=== PATIENT | female | born 1960 | race Caucasian/White ===

== ENCOUNTER 2016-05-02 05:53 | Emergency (ER) | payer BC ==
[2016-05-02] MEDS ORDERED: Sodium Chloride 0.9% 1,000 ML IV ONE (06:19)
[2016-05-02] MEDS ORDERED: Ondansetron 4 MG/2 ML SDV IVPUSH ONE (06:19)
[2016-05-02] MEDS ORDERED: Ketorolac 30 MG/ML SDV IVPUSH ONE (06:20)
--- NOTE | 2016-05-02 07:16 | EDM.PDOC ---
ED HPI GENERAL MEDICAL PROBLEM - General Chief Complaint: Gastrointestinal Problem Stated Complaint: PAIN ON RIGHT SIDE Time Seen by Provider: 05/02/16 06:57 - History of Present Illness INITIAL COMMENTS - FREE TEXT/NARRATIVE: HISTORY AND PHYSICAL: History of present illness: The patient is a 55-year-old female who presents with complaints of right lower abdominal pain nausea vomiting and diarrhea this been going on since about 12: 30 AM. The patient states she has a long-standing history of right lower abdominal pain and was told that she has an issue with her ovary and has been seen by Dr. Riddle and Dr. Loco at our institution as well as by [facility] this past . The patient has also been seen and evaluated by a surgeon, Dr. Myers, and L[place] and she feels that her right ovary needs to be removed but she states that "no one will take it out". She presents with similar pain that she has had before and says there is nothing different about it she has had nausea vomiting and diarrhea with that. She's had no fevers no chills no urinary complaints. The patient underwent labs here in the ED and has refused CAT scan or ultrasound. She had a CT scan performed here on July 31 at 2016 which showed a right adnexal mass and recommended ultrasound which she has not done and it also demonstrated the left hepatic lobe mass which she states she is aware of and does not want it addressed today.. Review of systems: As per history of present illness and below otherwise all systems reviewed and negative. Past medical history: As per history of present illness and as reviewed below otherwise noncontributory. Surgical history: As per history of present illness and as reviewed below otherwise noncontributory. Social history: No reported history of drug or alcohol abuse. Family history: As per history of present illness and as reviewed below otherwise noncontributory. Physical exam: General: Well-developed overweight female who is nontoxic and speaking clearly and easily. She moves easily in the bed without distress HEENT: Atraumatic, normocephalic, pupils reactive, negative for conjunctival pallor or scleral icterus, mucous membranes moist, throat clear, neck supple, nontender, trachea midline. Lungs: Clear to auscultation, breath sounds equal bilaterally, chest nontender. Heart: S1S2, regular, negative for clicks, rubs, or JVD. Abdomen: Soft, nondistended, nontender. On deep palpation of the right lower abdomen I am unable to elicit much pain and there is no rebound or guarding. She has hyperactive bowel sounds Negative for masses or hepatosplenomegaly. Negative for costovertebral tenderness. Pelvis: Stable nontender. Genitourinary: Deferred. Rectal: Deferred. Extremities: Atraumatic, negative for cords or calf pain. Neurovascular unremarkable. Neuro: Awake, alert, oriented. Cranial nerves II through XII unremarkable. Cerebellum unremarkable. Motor and sensory unremarkable throughout. Exam nonfocal. Diagnostics: CBC CMP UA CT scan of the abdomen and pelvis was ordered and the patient is refusing to perform that test Therapeutics: IV fluids Toradol Zofran Since the patient has been in the ED she has not had any vomiting or diarrhea and I have spoken to her at length that in order to make a better diagnosis I would want to do some imaging and she understands. She is currently refusing any imaging and would prefer to followup with the [facility] once they get her records from [facility] and determine the care plan from there. She understands the risks and is accepting them. I have spoken to her about using nonsteroidals and Zofran for home Impression: Acute on chronic right lower abdominal pain with vomiting and diarrhea improved Definitive disposition and diagnosis as appropriate pending reevaluation and review of above. Right Abdomen Pain Score (Numeric/FACES): 9 - Related Data Allergies Allergy/AdvReac Type Severity Reaction Status Date / Time shellfish derived Allergy Rash Verified 05/02/16 06:11 Home Meds: Home Meds Fluticasone/Salmeterol [Advair HFA 115-21] 1 puff INH BID 10/17/13 [History] Progesterone,Micronized [Progesterone] 50 mg PO DAILY 10/17/13 [History] Past Medical History - Past Health History Medical/Surgical History: Denies Medical/Surgical History Respiratory History: Reports: Asthma [employer] History: Reports: Other (see below) Other OB/BYN History: ovarian problems Endocrine/Metabolic History: Reports: Other (see below) Other Endocrine/Metabolic History: pre-diabetes - Infectious Disease History Infectious Disease History: Reports: Chicken pox, Other (see below) Other Infectious Disease History: cytomegalovirus Social & Family History - Family History Family Medical History: Noncontributory - Tobacco Use Smoking Status *Q: Never Smoker - Alcohol Use Days Per Week of Alcohol Use: 0 - Recreational Drug Use Recreational Drug Use: No ED ROS GENERAL - Review of Systems Review Of Systems: ROS reveals no pertinent complaints other than HPI. ED EXAM, GENERAL - Physical Exam Exam: See Below (See dictation) Course - Vital Signs Last Recorded V/S: Last Vital Signs Temp 37.2 C 05/02/16 06:06 Pulse 118 H 05/02/16 06:06 Resp 18 05/02/16 06:06 BP 146/85 H 05/02/16 06:06 Pulse Ox 93 L 05/02/16 06:06 - Orders/Labs/Meds Orders: Active Orders 24 hr Category Date Time Status Abdomen Pelvis wo Cont [CT] Stat Exams 05/02/16 06:20 Ordered UA W/MICROSCOPIC [URIN] Stat Lab 05/02/16 06:19 Uncollected Labs: Laboratory Tests 05/02/16 05/02/16 Range/Units 06:25 06:45 WBC 10.82 (4.0-11.0) K/uL RBC 5.13 (4.30-5.90) M/uL Hgb 14.9 (12.0-16.0) g/dL Hct 45.3 (36.0-46.0) % MCV 88.3 (80.0-98.0) fL MCH 29.0 (27.0-32.0) pg MCHC 32.9 (31.0-37.0) g/dL RDW Std Deviation 46.6 (28.0-62.0) fl RDW Coeff of Ana 14 (11.0-15.0) % Plt Count 280 (150-400) K/uL MPV 9.20 (7.40-12.00) fL Neut % (Auto) 90.3 H (48.0-80.0) % Lymph % (Auto) 3.8 L (16.0-40.0) % Love % (Auto) 5.3 (0.0-15.0) % Eos % (Auto) 0.5 (0.0-7.0) % Baso % (Auto) 0.1 (0.0-1.5) % Neut # (Auto) 9.8 H (1.4-5.7) K/uL Lymph # (Auto) 0.4 L (0.6-2.4) K/uL Love # (Auto) 0.6 (0.0-0.8) K/uL Eos # (Auto) 0.1 (0.0-0.7) K/uL Baso # (Auto) 0.0 (0.0-0.1) K/uL Nucleated RBC % 0.0 /100WBC Nucleated RBCs # 0 K/uL Sodium 138 (136-146) mmol/L Potassium 4.4 (3.5-5.1) mmol/L Chloride 107 (98-110) mmol/L Carbon Dioxide 22 (21-31) mmol/L BUN 18 (6.0-23.0) mg/dL Creatinine 0.8 (0.6-1.5) mg/dL Est Cr Clr Drug Dosing 86.93 mL/min Estimated GFR (MDRD) > 60.0 ml/min Glucose 112 H (60-110) mg/dL Calcium 8.1 L (8.8-10.8) mg/dL Total Bilirubin 0.6 (0.1-1.5) mg/dL AST 19 (5-40) IU/L ALT 31 (8-54) IU/L Alkaline Phosphatase 63 (40-150) Total Protein 7.0 (6.0-8.0) g/dL Albumin 3.8 (3.5-5.0) g/dL Globulin 3.2 (2.0-3.5) g/dL Albumin/Globulin Ratio 1.2 L (1.3-2.8) Meds: Medications Discontinued Medications Generic Name Dose Route Start Last Admin Trade Name Freq PRN Reason Stop Dose Admin Sodium Chloride 1,000 mls @ 999 mls/hr 05/02/16 06:19 05/02/16 06:28 Normal Saline IV 05/02/16 07:19 999 mls/hr .Bolus ONE Administration Ketorolac Tromethamine 30 mg 05/02/16 06:20 05/02/16 06:28 Toradol IVPUSH 05/02/16 06:21 30 mg ONETIME ONE Administration Ondansetron HCl 4 mg 05/02/16 06:19 05/02/16 06:28 Zofran IVPUSH 05/02/16 06:20 4 mg ONETIME ONE Administration Departure - Departure Time of Disposition: 07:33 Disposition: Home, Self-Care 01 Condition: good Clinical Impression: Chronic abdominal pain, Vomiting, Diarrhea Abdominal pain Qualifiers: Abdominal location: right lower quadrant Qualified Code(s): R10.31 - Right lower quadrant pain Forms: ED Department Discharge Additional Instructions: The following information is given to patients seen in the emergency department who are being discharged to home. This information is to outline your options for follow-up care. We provide all patients seen in our emergency department with a follow-up referral. The need for follow-up, as well as the timing and circumstances, are variable depending upon the specifics of your emergency department visit. If you don't have a primary care physician on staff, we will provide you with a referral. We always advise you to contact your personal physician following an emergency department visit to inform them of the circumstance of the visit and for follow-up with them and/or the need for any referrals to a consulting specialist. The emergency department will also refer you to a specialist when appropriate. This referral assures that you have the opportunity for followup care with a specialist. All of these measure are taken in an effort to provide you with optimal care, which includes your followup. Under all circumstances we always encourage you to contact your private physician who remains a resource for coordinating your care. When calling for followup care, please make the office aware that this follow-up is from your recent emergency room visit. If for any reason you are refused follow-up, please contact the [facility] emergency department at and ask to speak to the emergency department charge nurse. [facility] Primary care-Women's Health [address] [place] [id number] [facility] Primary care- Internal Medicine and Family [address] [address] Please take the Ultram and ibuprofen as well as the Zofran as needed [facility] Please call and followup with your family practice provider or with Dr. Riddle as we discussed and return here as needed and as discussed.
[2016-05-02 07:26] LABS: CHLORIDE,CL 107 mmol/L (98-110); SODIUM,NA 138 mmol/L (136-146)
[2016-05-02 07:48] VITALS: BP 140/70
== END 2016-05-02 07:46 | disposition home or self-care (01) ==
LOC: MW.ED 05:53
DX: R10.31 Right lower quadrant pain (principal); G89.29 Other chronic pain; R11.2 Nausea with vomiting, unspecified; R19.7 Diarrhea, unspecified; J45.909 Unspecified asthma, uncomplicated; Z91.013 Allergy to seafood
CPT/HCPCS: 80053; 85025; 96361; 96374; 96375; 99284; J1885; J2405; J7040

== ENCOUNTER 2016-05-27 06:19 | Day surgery (SDC) | payer BC ==
[2016-05-26 16:57] LABS: CHLORIDE,CL 105 mmol/L (98-110); SODIUM,NA 140 mmol/L (136-146)
[~2016-05-27 06:19] MED LIST: Lactated Ringers 1,000 ML IV SCH; Sodium Chloride 0.9% 10 ML Syringe FLUSH PRN; Sodium Chloride 0.9% 2.5 ML Syringe FLUSH PRN; ceFAZolin 2 GM in Premix Bag 1 BAG IV ONE
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
[2016-05-27] MEDS ORDERED: fentaNYL 250 MCG/5 ML SDV ONE (07:20)
[2016-05-27] MEDS ORDERED: Ondansetron 4 MG/2 ML SDV ONE (07:20)
[2016-05-27] MEDS ORDERED: Midazolam 1 MG/ML 2 ML SDV ONE (07:20)
[2016-05-27] MEDS ORDERED: Propofol 200 MG/20 ML SDV ONE (07:20)
[2016-05-27] MEDS ORDERED: Lidocaine 2% 5 ML SDV ONE (07:20)
[2016-05-27] MEDS ORDERED: Rocuronium 10 MG/ML 10 ML Syringe ONE (07:20)
[2016-05-27] MEDS ORDERED: Dexamethasone 4 MG/ML 5 ML MDV ONE (07:20)
[2016-05-27] MEDS ORDERED: Fluorescein 5 ML Vial ONE (07:32)
[2016-05-27] MEDS ORDERED: HYDROmorphone 2 MG/ML Syringe ONE (08:11)
[2016-05-27] MEDS ORDERED: fentaNYL 100 MCG/2 ML SDV IVPUSH PRN (08:35)
[2016-05-27] MEDS ORDERED: Belladonna Alkaloids/Opium 16.2-30 MG Supp RECTAL PRN (08:36)
[2016-05-27] MEDS ORDERED: Promethazine 12.5 MG Supp RECTAL ONE (08:36)
[2016-05-27] MEDS ORDERED: Albuterol/Ipratropium 3.0-0.5 MG/3 ML Neb Soln NEB PRN (08:39)
[2016-05-27] MEDS ORDERED: Neostigmine Methylsulfate 1 MG/ML 5 ML Syringe ONE (09:15)
[2016-05-27] MEDS ORDERED: Octyl 2-Cyanoacrylate 1 Tube ONE (09:18)
[2016-05-27] MEDS ORDERED: Promethazine 25 MG/ML SDV IM PRN (09:19)
[2016-05-27] MEDS ORDERED: Morphine 4 MG/ML Syringe IVPUSH PRN (09:19)
[2016-05-27] MEDS ORDERED: Ondansetron 4 MG/2 ML SDV IVPUSH PRN (09:19)
[2016-05-27] MEDS ORDERED: Ketorolac 30 MG/ML SDV IVPUSH PRN (09:19)
[2016-05-27] MEDS ORDERED: Ketorolac 30 MG/ML SDV IVPUSH ONE (09:19)
--- NOTE | 2016-05-27 09:23 | PCM.OPNOTE ---
- General Post-Op/Procedure Note Date of Surgery/Procedure: 05/27/16 Operative Procedure(s): TLH BSI Cysto Post-Op Diagnosis: Same Anesthesia Technique: General ET tube Primary Surgeon: Vladimir Riddle Document Control Assistant: Hortensia Huitron EBL in mLs: 150 Complications: None Condition: Good
--- NOTE | 2016-05-27 10:13 | PCM.POSTAN ---
POST ANESTHESIA ASSESSMENT - MENTAL STATUS Mental Status: alert, oriented - RESPIRATORY Respiratory Status: respiratory rate WNL, airway patent, O2 saturation stable - CARDIOVASCULAR CV Status: pulse rate WNL, blood pressure stable - GASTROINTESTINAL GI Status: no symptoms - PAIN Pain Score: 0 - POST OP HYDRATION Hydration Status: adequate & stable
--- NOTE | 2016-05-27 15:06 | OR ---
SURGEON: Vladimir Riddle MD DATE OF PROCEDURE: POSTOPERATIVE DIAGNOSES: 1. Pelvic pain. 2. Right ovarian cyst. POSTOPERATIVE DIAGNOSES: 1. Pelvic pain. 2. Right ovarian cyst. OPERATION PERFORMED: Multiple puncture diagnostic laparoscopy, total laparoscopic hysterectomy, laparoscopic bilateral salpingo-oophorectomy, and cystoscopy. DIRECTOR PHARMACEUTICAL: MARYANN Mallory. ANESTHESIA: General endotracheal intubation by Aurelia Ramos and Dr. Flores. ESTIMATED BLOOD LOSS: 150 mL. COMPLICATIONS: None. FINDINGS: Uterus is about 10 weeks. The right ovary is large cystic, is about 7 to 8 cm. INDICATION: [place] refer to the admit note. PROCEDURE IN DETAIL: The patient was brought to the OR, properly identified, and after adequate level of general anesthesia, the patient was placed in lithotomy, prepped and draped in sterile fashion, and De Santiago catheter was inserted in the bladder, and VCare uterine manipulator was placed in the uterus for manipulation. Then, the operation shifted abdominally. Stab wound was done beneath the umbilicus. The Veress needle was placed in the peritoneal cavity and that cavity insufflated with 6 L of carbon dioxide. Then skin incision was enlarged to accommodate 5-mm trocar and scope through it utilizing the Visiport technique to enter. Once we entered, inspection of the operative field was done, then 10-12 trocar placed in the left iliac fossa and one 5 mm trocar in the right iliac fossa, one suprapubically. The operation was started by placing the patient in steep Trendelenburg and retracting the intestine away from the operative field. The superior pedicle was coagulated, transected using the EnSeal Harmonic scalpel on both sides. The tubes and ovaries were included with the specimen. The round ligament was done in the same way and then the anterior leaf of the broad ligament was dissected downward pushing the bladder completely away from the operative field until I can feel the ring through the vagina. Then skeletonization of the uterine vessel was done and these vessel coagulated, transected using the [id number] Harmonic scalpel. The vagina was entered around the tip of the manipulator in a circular manner detaching the cervix from its attachment to the vagina. The cervix, uterus, tubes, and ovary were removed vaginally and pneumoperitoneum re-established by placing vaginal pack. It was noticed at this time, there was an area of bleeding and oozing from the right uterine vessel and that was individually picked and Endoloop was applied without any problem, and the bleeding stopped, and then thorough irrigation, inspection of the all pedicle. There was no oozing, no bleeding. We proceeded to close the vaginal cuff laparoscopically using 2-0 PDS interrupted sutures. While we were doing that, we asked the anesthesiologist to give the patient fluorescein and once we closed the vagina the abdomen was deflated and the patient flattened on the table, and the De Santiago catheter was removed. Cystoscopy was performed. The bladder was intact. Both ureteric orifices were seen with the dye coming from both of them. Thus, the patency of both ureters verified and confirmed, then the cystoscope was removed, and the multiple laparoscopic incisions were closed in layers. Instrument and sponge count were correct. The patient tolerated the procedure well, went to recovery room in stable general condition. SCOOBY / SLOAN /[id number]
[2016-05-27] MEDS: Acetaminophen/oxyCODONE 325-5 MG Tab PO PRN ×2 (17:50→22:00)
[2016-05-27] MEDS: metFORMIN 500 MG Tab PO SCH (21:38)
[2016-05-28] MEDS: Acetaminophen/oxyCODONE 325-5 MG Tab PO PRN ×2 (03:04→10:03)
[2016-05-28 05:11] LABS: CHLORIDE,CL 107 mmol/L (98-110); SODIUM,NA 139 mmol/L (136-146)
--- NOTE | 2016-05-28 07:50 | PCM48HPAN ---
Post Anesthesia Note - EVALUATION WITHIN 48HRS OF ANESTHETIC Vital Signs in Normal Range: Yes Patient Participated in Evaluation: Yes Respiratory Function Stable: Yes Airway Patent: Yes Cardiovascular Function Stable: Yes Hydration Status Stable: Yes Pain Control Satisfactory: Yes Nausea and Vomiting Control Satisfactory: Yes Mental Status Recovered: Yes
[2016-05-28 07:59] VITALS: BP 133/69
--- NOTE | 2016-05-28 08:51 | PCM.SURGPN ---
- General Info Date of Service: 05/28/16 POD#: 1 Functional Status: Reports: pain controlled - Review of Systems General: Reports: No Symptoms HEENT: Reports: no symptoms Pulmonary: Reports: no symptoms Cardiovascular: Reports: No Symptoms Gastrointestinal: Reports: No symptoms Genitourinary: Reports: no symptoms Musculoskeletal: Reports: no symptoms Skin: Reports: no symptoms Neurological: Reports: No Symptoms Psychiatric: Reports: no symptoms - Patient Data Vitals - most recent: Last Vital Signs Temp 37.0 C 05/28/16 07:59 Pulse 85 05/28/16 07:59 Resp 18 05/28/16 07:59 BP 133/69 05/28/16 07:59 Pulse Ox 92 L 05/28/16 07:59 Weight - most recent: 119.295 kg I&O - last 24 hours: Intake & Output 05/27/16 05/28/16 05/28/16 22:59 06:59 14:59 Intake Total 1156 600 Output Total 650 1950 Balance 506 -1350 Lab Results last 24 hrs: Laboratory Results - last 24 hr 05/28/16 05/28/16 Range/Units 04:34 04:34 WBC 16.82 H (4.0-11.0) K/uL RBC 4.07 L (4.30-5.90) M/uL Hgb 11.6 L (12.0-16.0) g/dL Hct 36.6 (36.0-46.0) % MCV 89.9 (80.0-98.0) fL MCH 28.5 (27.0-32.0) pg MCHC 31.7 (31.0-37.0) g/dL RDW Std Deviation 47.2 (28.0-62.0) fl RDW Coeff of Ana 14 (11.0-15.0) % Plt Count 314 (150-400) K/uL MPV 8.80 (7.40-12.00) fL Neut % (Auto) 82.6 H (48.0-80.0) % Lymph % (Auto) 10.1 L (16.0-40.0) % [place] % (Auto) 7.1 (0.0-15.0) % Eos % (Auto) 0.1 (0.0-7.0) % Baso % (Auto) 0.1 (0.0-1.5) % Neut # (Auto) 13.9 H (1.4-5.7) K/uL Lymph # (Auto) 1.7 (0.6-2.4) K/uL [place] # (Auto) 1.2 H (0.0-0.8) K/uL Eos # (Auto) 0.0 (0.0-0.7) K/uL Baso # (Auto) 0.0 (0.0-0.1) K/uL Nucleated RBC % 0.0 /100WBC Nucleated RBCs # 0 K/uL Sodium 139 (136-146) mmol/L Potassium 4.5 (3.5-5.1) mmol/L Chloride 107 (98-110) mmol/L Carbon Dioxide 22 (21-31) mmol/L BUN 14 (6.0-23.0) mg/dL Creatinine 0.8 (0.6-1.5) mg/dL Est Cr Clr Drug Dosing 75.26 mL/min Estimated GFR (MDRD) > 60.0 ml/min Glucose 122 H (60-110) mg/dL Calcium 8.8 (8.8-10.8) mg/dL Med Orders - Current: Current Medications Albuterol/Ipratropium (Duoneb 3.0-0.5 Mg/3 Ml) 3 ml NEB ONETIME PRN PRN Reason: Shortness of Breath Belladonna Alkaloids/Opium (B & O Supprettes No. 15a) 1 supp RECTAL ONETIME PRN PRN Reason: Spasms Fentanyl (Sublimaze) 50 mcg IVPUSH SEECOMMENT PRN PRN Reason: Pain (moderate 4-6) Lactated Ringer's (Ringers, Lactated) 1,000 mls @ 500 mls/hr IV .BOLUS [facility] Last Admin: 05/27/16 06:39 Dose: 500 mls/hr Ketorolac Tromethamine (Toradol) 30 mg IVPUSH Q6H PRN PRN Reason: Pain (severe 7-10) Stop: 06/01/16 09:19 Metformin HCl (Glucophage) 500 mg PO BID [facility] Last Admin: 05/27/16 21:38 Dose: Not Given Montelukast Sodium (Singulair) 10 mg PO DAILY [facility] Morphine Sulfate (Morphine) 4 mg IVPUSH Q2H PRN PRN Reason: Pain (severe 7-10) Ondansetron HCl (Zofran) 4 mg IVPUSH Q6H PRN PRN Reason: Nausea/Vomiting Oxycodone/Acetaminophen (Percocet 325-5 Mg) 2 tab PO Q4H PRN PRN Reason: Pain (moderate 4-6) Last Admin: 05/28/16 03:04 Dose: 2 tab Promethazine HCl (Phenergan) 25 mg IM Q6H PRN PRN Reason: Nausea/Vomiting Last Admin: 05/27/16 10:56 Dose: 25 mg Fluticasone/Salmeterol (Advair Diskus 250-50) 0 puff INH BID [facility] Sodium Chloride (Saline Flush) 10 ml FLUSH ASDIRECTED PRN PRN Reason: Keep Vein Open Sodium Chloride (Saline Flush) 2.5 ml FLUSH ASDIRECTED PRN PRN Reason: Keep Vein Open Discontinued Medications Dexamethasone (Dexamethasone) Confirm Administered Dose 20 mg .ROUTE .STK-MED ONE Stop: 05/27/16 07:21 Fentanyl (Sublimaze) Confirm Administered Dose 250 mcg .ROUTE .STK-MED ONE Stop: 05/27/16 07:21 Fluorescein Sodium (Ak-Fluor) Confirm Administered Dose 5 ml .ROUTE .STK-MED ONE Stop: 05/27/16 07:33 Glycopyrrolate () Confirm Administered Dose 1 mg .ROUTE .STK-MED ONE Stop: 05/27/16 09:16 Hydromorphone HCl (Dilaudid) Confirm Administered Dose 2 mg .ROUTE .STK-MED ONE Stop: 05/27/16 08:12 Cefazolin Sodium/Dextrose 2 gm (/ Premix) 50 mls @ 100 mls/hr IV ONETIME ONE Stop: 05/26/16 11:33 Last Admin: 05/27/16 15:08 Dose: Not Given Ketorolac Tromethamine (Toradol) 30 mg IVPUSH ONETIME ONE Stop: 05/27/16 09:20 Last Admin: 05/27/16 15:08 Dose: Not Given Lidocaine (Xylocaine-Mpf 2%) Confirm Administered Dose 5 ml .ROUTE .STK-MED ONE Stop: 05/27/16 07:21 Midazolam HCl (Versed 1 Mg/Ml) Confirm Administered Dose 2 mg .ROUTE .STK-MED ONE Stop: 05/27/16 07:21 Neostigmine Methylsulfate (Neostigmine) Confirm Administered Dose 5 mg .ROUTE .STK-MED ONE Stop: 05/27/16 09:16 Octyl Cyanoacrylate (Dermabond Advance) Confirm Administered Dose 1 applic .ROUTE .STK-MED ONE Stop: 05/27/16 09:19 Ondansetron HCl (Zofran) Confirm Administered Dose 4 mg .ROUTE .STK-MED ONE Stop: 05/27/16 07:21 Promethazine HCl (Phenadoz) 12.5 mg RECTAL ONETIME ONE Stop: 05/27/16 08:37 Last Admin: 05/27/16 15:08 Dose: Not Given Propofol (Diprivan 20 Ml) Confirm Administered Dose 200 mg .ROUTE .STK-MED ONE Stop: 05/27/16 07:21 Rocuronium Declo (Zemuron) Confirm Administered Dose 100 mg .ROUTE .STK-MED ONE Stop: 05/27/16 07:21 - Exam Wound/Incisions: healing well General: alert, oriented HEENT: Pupils equal Neck: supple Lungs: Clear to auscultation, Normal respiratory effort Cardiovascular: Regular Rate, Regular Rhythm Abdomen: bowel sounds present, soft, no tenderness, no distension Extremities: no edema Skin: warm, dry, intact Neurological: no new focal deficit Psy/Mental Status: alert, normal affect, normal mood - Problem List Review Problem List Initiated/Reviewed/Updated: Yes - My Orders Last 24 Hours: Active Orders 24 hr Category Date Time Status Patient Status [ADT] Routine ADT 05/27/16 09:19 Active Notify Provider Vital Signs [RC] ASDIRECTED Care 05/27/16 09:19 Active RT Aerosol Therapy [RC] ASDIRECTED Care 05/27/16 08:41 Active RT Incentive Spirometry [RC] Q2HWA Care 05/27/16 09:19 Active Up With Assistance [RC] PER UNIT ROUTINE Care 05/27/16 09:19 Active Up ad Autumn [RC] PER UNIT ROUTINE Care 05/27/16 09:19 Active Urinary Catheter Removal [RC] Per Unit Routine Care 05/27/16 09:19 Active Vital Signs [RC] Q4H Care 05/27/16 09:19 Active Regular Diet [DIET] Diet 05/27/16 Lunch Active Acetaminophen/oxyCODONE [Percocet 325-5 MG] Med 05/27/16 09:19 Active 2 tab PO Q4H PRN Albuterol/Ipratropium [DuoNeb 3.0-0.5 MG/3 ML] Med 05/27/16 08:39 Active 3 ml NEB ONETIME PRN Belladonna/Opium [B & O Supprettes No. 15A] Med 05/27/16 08:36 Active 1 supp RECTAL ONETIME PRN Fluticasone/Salmeterol [Advair Diskus 250-50] Med 05/28/16 09:00 Active 0 puff INH BID Ketorolac [Toradol] Med 05/27/16 09:19 Active 30 mg IVPUSH Q6H PRN Montelukast [Singulair] Med 05/28/16 09:00 Active 10 mg PO DAILY Morphine Med 05/27/16 09:19 Active 4 mg IVPUSH Q2H PRN Ondansetron [Zofran] Med 05/27/16 09:19 Active 4 mg IVPUSH Q6H PRN Promethazine [Phenergan] Med 05/27/16 09:19 Active 25 mg IM Q6H PRN fentaNYL [Sublimaze] Med 05/27/16 08:35 Active 50 mcg IVPUSH SEECOMMENT PRN metFORMIN [Glucophage] Med 05/27/16 09:00 Active 500 mg PO BID Peripheral IV Discontinue [OM.PC] Routine Oth 05/27/16 09:19 Ordered Sequential Compression Device [OM.PC] Per Unit Routine Oth 05/27/16 09:19 Ordered Resuscitation Status Routine Resus Stat 05/27/16 09:19 Ordered Medication Orders Albuterol/Ipratropium (Duoneb 3.0-0.5 Mg/3 Ml) 3 ml NEB ONETIME PRN PRN Reason: Shortness of Breath Belladonna Alkaloids/Opium (B & O Supprettes No. 15a) 1 supp RECTAL ONETIME PRN PRN Reason: Spasms Fentanyl (Sublimaze) 50 mcg IVPUSH SEECOMMENT PRN PRN Reason: Pain (moderate 4-6) Lactated Ringer's (Ringers, Lactated) 1,000 mls @ 500 mls/hr IV .BOLUS [facility] Last Admin: 05/27/16 06:39 Dose: 500 mls/hr Ketorolac Tromethamine (Toradol) 30 mg IVPUSH Q6H PRN PRN Reason: Pain (severe 7-10) Stop: 06/01/16 09:19 Metformin HCl (Glucophage) 500 mg PO BID [facility] Last Admin: 05/27/16 21:38 Dose: Admin: 05/27/16 21:38 Dose: Montelukast Sodium (Singulair) 10 mg PO DAILY [facility] Morphine Sulfate (Morphine) 4 mg IVPUSH Q2H PRN PRN Reason: Pain (severe 7-10) Ondansetron HCl (Zofran) 4 mg IVPUSH Q6H PRN PRN Reason: Nausea/Vomiting Oxycodone/Acetaminophen (Percocet 325-5 Mg) 2 tab PO Q4H PRN PRN Reason: Pain (moderate 4-6) Last Admin: 05/28/16 03:04 Dose: 2 tab Admin: 05/27/16 22:00 Dose: 2 tab Admin: 05/27/16 17:50 Dose: 2 tab Promethazine HCl (Phenergan) 25 mg IM Q6H PRN PRN Reason: Nausea/Vomiting Last Admin: 05/27/16 10:56 Dose: 25 mg Fluticasone/Salmeterol (Advair Diskus 250-50) 0 puff INH BID [facility] Sodium Chloride (Saline Flush) 10 ml FLUSH ASDIRECTED PRN PRN Reason: Keep Vein Open Sodium Chloride (Saline Flush) 2.5 ml FLUSH ASDIRECTED PRN PRN Reason: Keep Vein Open - Assessment Assessment (Free Text/Narrative):: Status post total laparoscopic hysterectomy and laparoscopic bilateral salpingo- oophorectomy postoperative day #1 the incision is clean and dry and there is no vaginal bleeding minimum pain laparoscopic incision is fine. Patient on regular diet tolerated very passing gas and voiding without any problem - Plan Plan (Free Text/Narrative):: I am sending the patient home the post hysterectomy instruction is given to the patient prescription for Percocet 7.5/325 for postoperative pain is given to the patient the patient to return to clinic in one week for postoperative followup
--- NOTE | 2016-05-28 08:52 | PCM.DCSUM1 ---
Discharge Summary - Discharge Data Discharge Date: 05/28/16 Discharge Disposition: Home, Self-Care 01 Condition: Good - Patient Summary/Data Operative Procedure(s) Performed: TL[facility] BSI Cysto - Patient Instructions Diet: Usual Diet as Tolerated Activity: As Tolerated Driving: Do Not Drive Showering/Bathing: May Shower Wound/Incision Care: Keep Operative Site/Wound Site Clean and Dry Notify Provider of: Fever, Increased Pain, Swelling and Redness, Drainage, Nausea and/or Vomiting - Discharge Plan Prescriptions/Med Rec: oxyCODONE HCl/Acetaminophen [Percocet 7.5-325 mg Tablet] 1 each PO Q4HR PRN #30 tablet PRN Reason: Pain Home Medications: Home Meds Albuterol/Ipratropium [DuoNeb 3.0-0.5 MG/3 ML] 1 dose NEB ASDIRECTED PRN [History] Levomefolate/Algal Oil [[place]-Algal Oil 7.5 mg Cap] 1 tab PO DAILY 05/24/16 [ History] Montelukast Sodium 10 mg PO DAILY 05/24/16 [History] Sm Mucous Er 1 tab PO ASDIRECTED 05/24/16 [History] Sodium Chloride 0.9% 1 dose NEB ASDIRECTED PRN 05/24/16 [History] Thyroid,Pork [Nature-Throid] 130 mg PO DAILY 05/24/16 [History] metFORMIN HCl [Metformin HCl] 500 mg PO BID 05/24/16 [History] Fluticasone/Salmeterol [Advair 250-50 Diskus] 1 puff IH BID 05/27/16 [History] oxyCODONE HCl/Acetaminophen [Percocet 7.5-325 mg Tablet] 1 each PO Q4HR PRN #30 tablet 05/28/16 [Rx] Patient Handouts: Acetaminophen; Oxycodone tablets, Total Laparoscopic Hysterectomy, Care After Referrals: [facility] [Outside] Vladimir Riddle MD [Physician] - 06/04/16 9:00 am - General Info Date of Service: 05/28/16 Functional Status: Reports: pain controlled - Review of Systems General: Reports: No Symptoms HEENT: Reports: no symptoms Pulmonary: Reports: no symptoms Cardiovascular: Reports: No Symptoms Gastrointestinal: Reports: No symptoms Genitourinary: Reports: no symptoms Musculoskeletal: Reports: no symptoms Skin: Reports: no symptoms Neurological: Reports: No Symptoms Psychiatric: Reports: no symptoms - Patient Data Vitals - Most Recent: Last Vital Signs Temp 37.0 C 05/28/16 07:59 Pulse 85 05/28/16 07:59 Resp 18 05/28/16 07:59 BP 133/69 05/28/16 07:59 Pulse Ox 92 L 05/28/16 07:59 Weight - Most Recent: 119.295 kg I&O - Last 24 hours: Intake & Output 05/27/16 05/28/16 05/28/16 22:59 06:59 14:59 Intake Total 1156 600 Output Total 650 1950 Balance 506 -1350 Lab Results - Last 24 hrs: Laboratory Results - last 24 hr 05/28/16 05/28/16 Range/Units 04:34 04:34 WBC 16.82 H (4.0-11.0) K/uL RBC 4.07 L (4.30-5.90) M/uL Hgb 11.6 L (12.0-16.0) g/dL Hct 36.6 (36.0-46.0) % MCV 89.9 (80.0-98.0) fL MCH 28.5 (27.0-32.0) pg MCHC 31.7 (31.0-37.0) g/dL RDW Std Deviation 47.2 (28.0-62.0) fl RDW Coeff of Ana 14 (11.0-15.0) % Plt Count 314 (150-400) K/uL MPV 8.80 (7.40-12.00) fL Neut % (Auto) 82.6 H (48.0-80.0) % Lymph % (Auto) 10.1 L (16.0-40.0) % [place] % (Auto) 7.1 (0.0-15.0) % Eos % (Auto) 0.1 (0.0-7.0) % Baso % (Auto) 0.1 (0.0-1.5) % Neut # (Auto) 13.9 H (1.4-5.7) K/uL Lymph # (Auto) 1.7 (0.6-2.4) K/uL [place] # (Auto) 1.2 H (0.0-0.8) K/uL Eos # (Auto) 0.0 (0.0-0.7) K/uL Baso # (Auto) 0.0 (0.0-0.1) K/uL Nucleated RBC % 0.0 /100WBC Nucleated RBCs # 0 K/uL Sodium 139 (136-146) mmol/L Potassium 4.5 (3.5-5.1) mmol/L Chloride 107 (98-110) mmol/L Carbon Dioxide 22 (21-31) mmol/L BUN 14 (6.0-23.0) mg/dL Creatinine 0.8 (0.6-1.5) mg/dL Est Cr Clr Drug Dosing 75.26 mL/min Estimated GFR (MDRD) > 60.0 ml/min Glucose 122 H (60-110) mg/dL Calcium 8.8 (8.8-10.8) mg/dL Med Orders - Current: Current Medications Albuterol/Ipratropium (Duoneb 3.0-0.5 Mg/3 Ml) 3 ml NEB ONETIME PRN PRN Reason: Shortness of Breath Belladonna Alkaloids/Opium (B & O Supprettes No. 15a) 1 supp RECTAL ONETIME PRN PRN Reason: Spasms Fentanyl (Sublimaze) 50 mcg IVPUSH SEECOMMENT PRN PRN Reason: Pain (moderate 4-6) Lactated Ringer's (Ringers, Lactated) 1,000 mls @ 500 mls/hr IV .[facility]OL[facility] Last Admin: 05/27/16 06:39 Dose: 500 mls/hr Ketorolac Tromethamine (Toradol) 30 mg IVPUSH Q6H PRN PRN Reason: Pain (severe 7-10) Stop: 06/01/16 09:19 Metformin HCl (Glucophage) 500 mg PO BID [facility] Last Admin: 05/27/16 21:38 Dose: Not Given Montelukast Sodium (Singulair) 10 mg PO DAILY [facility] Morphine Sulfate (Morphine) 4 mg IVPUSH Q2H PRN PRN Reason: Pain (severe 7-10) Ondansetron HCl (Zofran) 4 mg IVPUSH Q6H PRN PRN Reason: Nausea/Vomiting Oxycodone/Acetaminophen (Percocet 325-5 Mg) 2 tab PO Q4H PRN PRN Reason: Pain (moderate 4-6) Last Admin: 05/28/16 03:04 Dose: 2 tab Promethazine HCl (Phenergan) 25 mg IM Q6H PRN PRN Reason: Nausea/Vomiting Last Admin: 05/27/16 10:56 Dose: 25 mg Fluticasone/Salmeterol (Advair Diskus 250-50) 0 puff INH BID [facility] Sodium Chloride (Saline Flush) 10 ml FLUSH ASDIRECTED PRN PRN Reason: Keep Vein Open Sodium Chloride (Saline Flush) 2.5 ml FLUSH ASDIRECTED PRN PRN Reason: Keep Vein Open Discontinued Medications Dexamethasone (Dexamethasone) Confirm Administered Dose 20 mg .ROUTE .STK-MED ONE Stop: 05/27/16 07:21 Fentanyl (Sublimaze) Confirm Administered Dose 250 mcg .ROUTE .STK-MED ONE Stop: 05/27/16 07:21 Fluorescein Sodium (Ak-Fluor) Confirm Administered Dose 5 ml .ROUTE .STK-MED ONE Stop: 05/27/16 07:33 Glycopyrrolate () Confirm Administered Dose 1 mg .ROUTE .STK-MED ONE Stop: 05/27/16 09:16 Hydromorphone HCl (Dilaudid) Confirm Administered Dose 2 mg .ROUTE .STK-MED ONE Stop: 05/27/16 08:12 Cefazolin Sodium/Dextrose 2 gm (/ Premix) 50 mls @ 100 mls/hr IV ONETIME ONE Stop: 05/26/16 11:33 Last Admin: 05/27/16 15:08 Dose: Not Given Ketorolac Tromethamine (Toradol) 30 mg IVPUSH ONETIME ONE Stop: 05/27/16 09:20 Last Admin: 05/27/16 15:08 Dose: Not Given Lidocaine (Xylocaine-Mpf 2%) Confirm Administered Dose 5 ml .ROUTE .STK-MED ONE Stop: 05/27/16 07:21 Midazolam HCl (Versed 1 Mg/Ml) Confirm Administered Dose 2 mg .ROUTE .STK-MED ONE Stop: 05/27/16 07:21 Neostigmine Methylsulfate (Neostigmine) Confirm Administered Dose 5 mg .ROUTE .STK-MED ONE Stop: 05/27/16 09:16 Octyl Cyanoacrylate (Dermabond Advance) Confirm Administered Dose 1 applic .ROUTE .STK-MED ONE Stop: 05/27/16 09:19 Ondansetron HCl (Zofran) Confirm Administered Dose 4 mg .ROUTE .STK-MED ONE Stop: 05/27/16 07:21 Promethazine HCl (Phenadoz) 12.5 mg RECTAL ONETIME ONE Stop: 05/27/16 08:37 Last Admin: 05/27/16 15:08 Dose: Not Given Propofol (Diprivan 20 Ml) Confirm Administered Dose 200 mg .ROUTE .STK-MED ONE Stop: 05/27/16 07:21 Rocuronium Riva (Zemuron) Confirm Administered Dose 100 mg .ROUTE .STK-MED ONE Stop: 05/27/16 07:21 - Exam General: Reports: alert, oriented HEENT: Reports: Pupils equal, Pupils reactive, EOMI, Mucous membr. moist/pink Neck: Reports: supple Lungs: Reports: Clear to auscultation, Normal respiratory effort Cardiovascular: Reports: Regular Rate, Regular Rhythm Abdomen: Reports: bowel sounds present, soft, no tenderness, no distension (Female) Exam: Normal external exam, Normal speculum exam, Normal bimanual exam Rectal (Female) Exam: Normal Exam, Normal rectal tone Back Exam: Reports: normal inspection, full range of motion Extremities: Reports: no edema, normal pulses Skin: Reports: warm, dry, intact Wound/Incisions: Reports: healing well Neurological: Reports: no new focal deficit Psy/Mental Status: Reports: alert, normal affect, normal mood *Q Meaningful Use (DIS) - VTE *Q VTE Criteria *Q: - Stroke *Q Stroke Criteria *Q: - AMI *Q AMI Criteria *Q:
[2016-05-28] MEDS: metFORMIN 500 MG Tab PO SCH (08:59)
[2016-05-28] MEDS ORDERED: Montelukast 10 MG Tab PO SCH (09:00)
[2016-05-28] MEDS ORDERED: Fluticasone/Salmeterol 250-50 MCG Inhalation Powder 14/Diskus INH SCH (09:00)
== END 2016-05-28 10:15 | disposition home or self-care (01) ==
LOC: MW.SDS 06:19 → MW.MS 09:19 → MW.SDS 05-28 10:15
PROVIDERS: ATTEND Obstetrics & Gynecology
DX: D25.1 Intramural leiomyoma of uterus (principal); N83.01 Follicular cyst of right ovary; Z98.51 Tubal ligation status; Z91.018 Allergy to other foods; Z91.013 Allergy to seafood; Z79.899 Other long term (current) drug therapy
CPT/HCPCS: 36415; 58552; 80048; 84703; 85025; 85027; 86850; 86900; 86901; 94640; A9270; J1100; J1170; J2250; J2405; J2550; J3010; J7120; 00944; 88307; J2704

== ENCOUNTER 2020-12-09 15:25 | Inpatient (IN) | payer BC ==
[2020-12-09] MEDS ORDERED: Sodium Chloride 0.9% 2.5 ML Syringe FLUSH PRN (15:38)
[2020-12-09] MEDS ORDERED: Albuterol 8 GM Inhaler INH ONE (15:38)
[2020-12-09] MEDS ORDERED: Sodium Chloride 0.9% 10 ML Syringe FLUSH PRN (15:38)
[2020-12-09] MEDS ORDERED: Dexamethasone 10 MG/ML SDV IVPUSH ONE (15:39)
--- NOTE | 2020-12-09 16:19 | CR ---
HISTORY: Shortness of breath. Cough. COVID-19 positive. COMPARISON: None available FINDINGS: A portable erect AP view of the chest was obtained at 1552 hours. There are moderate streaky and patchy infiltrates scattered throughout both lungs consistent with an atypical pneumonia such as COVID-19. There is relative sparing of the left upper lobe. The heart is top normal in size. The mediastinum is normal in appearance. The osseous structures are normal in appearance for the patient`s age. IMPRESSION: Moderate patchy and streaky bilateral pulmonary infiltrates consistent with an atypical pneumonia such as COVID-19. Dictated by Jose Johnson MD @ 12/09/2020 4:16:51 PM (Electronically Signed)
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
[2020-12-09 16:52] LABS: BLOOD UREA NITROGEN,BUN 12 mg/dL (7.0-18.0); CARBON DIOXIDE,CO2 25.8 mmol/L (21.0-32.0); CHLORIDE,CL 102 mmol/L (98-107); GLUCOSE RANDOM 130 mg/dL (74-106); POTASSIUM,K 4.7 mmol/L (3.5-5.1); SODIUM,NA 139 mmol/L (136-145)
[2020-12-09] MEDS ORDERED: REMDESIVIR 200 MG in Sodium Chloride 0.9% 250 ML IV ONE (17:42)
[2020-12-09] MEDS ORDERED: Albuterol/Ipratropium 4 GM Inhalation Spray INH PRN (18:50)
[2020-12-09] MEDS ORDERED: Enoxaparin 40 MG/0.4 ML Syringe SUBCUT SCH (19:00)
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
[2020-12-10] MEDS: guaiFENesin 100 MG/5 ML Soln 5 ML UD Cup PO PRN ×3 (04:35→22:43)
[2020-12-10 07:27] LABS: BLOOD UREA NITROGEN,BUN 10 mg/dL (7.0-18.0); CARBON DIOXIDE,CO2 24.1 mmol/L (21.0-32.0); CHLORIDE,CL 102 mmol/L (98-107); GLUCOSE RANDOM 146 mg/dL (74-106); POTASSIUM,K 4.5 mmol/L (3.5-5.1); SODIUM,NA 137 mmol/L (136-145)
[2020-12-10] MEDS: Enoxaparin 40 MG/0.4 ML Syringe SUBCUT SCH ×2 (08:52→20:24)
[2020-12-10] MEDS: Dexamethasone 4 MG Tab PO SCH (08:53)
[2020-12-10] MEDS: Pantoprazole 40 MG Tab.CR PO SCH (08:53)
[2020-12-10] MEDS ORDERED: Albuterol/Ipratropium 3.0-0.5 MG/3 ML Neb Soln NEB PRN ×2 (14:30→18:00)
--- NOTE | 2020-12-10 14:54 | PCM.PN ---
<Bradley Donahue - Last Filed: 12/10/20 14:48> - General Info Date of Service: 12/10/20 Subjective Update: The patient is a 60-year-old female, on day 2 of service, with a significant past medical history of asthma, GERD, DUB, polycystic ovaries, history of CMV, and anxiety, who was admitted due to acute respiratory failure secondary to COVID-19 pneumonia. The patient is currently saturating 92% on 1 L of oxygen. Upon interview with the patient today she admits that she has shortness of breath upon exertion around her room and that she has a cough productive of white sputum devoid of any blood or mucus. She also admits to feeling weaker than usual. She had combivent on board which was as needed but now has been scheduled to every 4 hours. She also has duo nebs on board which a re as needed. She has no other health concerns at this time. - Review of Systems General: Reports: Weakness, Fatigue. Denies: Fever HEENT: Denies: Headaches, Sore Throat Pulmonary: Reports: Shortness of Breath, Cough Cardiovascular: Reports: Dyspnea on Exertion. Denies: Chest Pain, Palpitations Gastrointestinal: Denies: Abdominal Pain Genitourinary: Denies: Dysuria - Patient Data Vitals - Most Recent: Last Vital Signs Temp 98.6 F 12/10/20 12:00 Pulse 84 12/10/20 12:00 Resp 18 12/10/20 12:00 BP 132/80 12/10/20 12:00 Pulse Ox 90 L 12/10/20 12:00 Weight - Most Recent: 122.47 kg I&O - Last 24 Hours: Intake & Output 12/09/20 12/10/20 12/10/20 22:59 06:59 14:59 Intake Total 800 Output Total 800 Balance 0 Lab Results Last 24 Hours: Laboratory Results - last 24 hr 12/09/20 12/09/20 12/09/20 Range/Units 16:15 16:15 16:15 WBC 6.23 (4.0-11.0) K/uL RBC 4.99 (4.30-5.90) M/uL Hgb 14.4 (12.0-16.0) g/dL Hct 43.5 (36.0-46.0) % MCV 87.2 (80.0-98.0) fL MCH 28.9 (27.0-32.0) pg MCHC 33.1 (31.0-37.0) g/dL RDW Std Deviation 45.8 (28.0-62.0) fl RDW Coeff of Ana 15 (11.0-15.0) % Plt Count 276 (150-400) K/uL MPV 9.90 (7.40-12.00) fL Neut % (Auto) 70.6 (48.0-80.0) % Lymph % (Auto) 21.2 (16.0-40.0) % Worth % (Auto) 7.7 (0.0-15.0) % Eos % (Auto) 0.0 (0.0-7.0) % Baso % (Auto) 0.5 (0.0-1.5) % Neut # (Auto) 4.4 (1.4-5.7) K/uL Lymph # (Auto) 1.3 (0.6-2.4) K/uL Worth # (Auto) 0.5 (0.0-0.8) K/uL Eos # (Auto) 0.0 (0.0-0.7) K/uL Baso # (Auto) 0.0 (0.0-0.1) K/uL Nucleated RBC % 0.0 /100WBC Nucleated RBCs # 0 K/uL Sodium 139 (136-145) mmol/L Potassium 4.7 (3.5-5.1) mmol/L Chloride 102 (98-107) mmol/L Carbon Dioxide 25.8 (21.0-32.0) mmol/L BUN 12 (7.0-18.0) mg/dL Creatinine 0.6 (0.6-1.0) mg/dL Est Cr Clr Drug Dosing 90.84 mL/min Estimated GFR (MDRD) > 60.0 ml/min Glucose 130 H (74-106) mg/dL Calcium 8.7 (8.5-10.1) mg/dL Total Bilirubin 0.5 (0.2-1.0) mg/dL Direct Bilirubin 0.10 (0.0-0.5) mg/dL AST 57 H (15-37) IU/L ALT 42 (14-63) IU/L Alkaline Phosphatase 62 (46-116) U/L Troponin I < 0.050 (0.000-0.056) ng/mL Total Protein 7.0 (6.4-8.2) g/dL Albumin 3.1 L (3.4-5.0) g/dL Globulin 3.9 (2.6-4.0) g/dL Albumin/Globulin Ratio 0.8 L (0.9-1.6) 12/10/20 12/10/20 Range/Units 06:29 06:29 WBC 4.79 (4.0-11.0) K/uL RBC 4.88 (4.30-5.90) M/uL Hgb 14.0 (12.0-16.0) g/dL Hct 42.3 (36.0-46.0) % MCV 86.7 (80.0-98.0) fL MCH 28.7 (27.0-32.0) pg MCHC 33.1 (31.0-37.0) g/dL RDW Std Deviation 45.3 (28.0-62.0) fl RDW Coeff of Ana 14 (11.0-15.0) % Plt Count 356 (150-400) K/uL MPV 9.00 (7.40-12.00) fL Neut % (Auto) 72.0 (48.0-80.0) % Lymph % (Auto) 20.3 (16.0-40.0) % Worth % (Auto) 7.5 (0.0-15.0) % Eos % (Auto) 0.0 (0.0-7.0) % Baso % (Auto) 0.2 (0.0-1.5) % Neut # (Auto) 3.5 (1.4-5.7) K/uL Lymph # (Auto) 1.0 (0.6-2.4) K/uL Worth # (Auto) 0.4 (0.0-0.8) K/uL Eos # (Auto) 0.0 (0.0-0.7) K/uL Baso # (Auto) 0.0 (0.0-0.1) K/uL Nucleated RBC % 0.0 /100WBC Nucleated RBCs # 0 K/uL Sodium 137 (136-145) mmol/L Potassium 4.5 (3.5-5.1) mmol/L Chloride 102 (98-107) mmol/L Carbon Dioxide 24.1 (21.0-32.0) mmol/L BUN 10 (7.0-18.0) mg/dL Creatinine 0.7 (0.6-1.0) mg/dL Est Cr Clr Drug Dosing 81.01 mL/min Estimated GFR (MDRD) > 60.0 ml/min Glucose 146 H (74-106) mg/dL Calcium 8.2 L (8.5-10.1) mg/dL Total Bilirubin 0.5 (0.2-1.0) mg/dL Direct Bilirubin (0.0-0.5) mg/dL AST 40 H (15-37) IU/L ALT 45 (14-63) IU/L Alkaline Phosphatase 64 (46-116) U/L Troponin I (0.000-0.056) ng/mL Total Protein 7.4 (6.4-8.2) g/dL Albumin 2.9 L (3.4-5.0) g/dL Globulin 4.5 H (2.6-4.0) g/dL Albumin/Globulin Ratio 0.6 L (0.9-1.6) Med Orders - Current: Current Medications Albuterol/Ipratropium (Albuterol/Ipratropium 4 Gm Inhalation [place]) 0 gm INH Q4H [facility] Albuterol/Ipratropium (Albuterol/Ipratropium 3.0-0.5 Mg/3 Ml Neb Soln) 3 ml NEB Q4HRRT PRN PRN Reason: Shortness of Breath Dexamethasone (Dexamethasone 4 Mg Tab) 6 mg PO DAILY [facility] Last Admin: 12/10/20 08:53 Dose: 6 mg Documented by: Enoxaparin Sodium (Enoxaparin 40 Mg/0.4 Ml Syringe) 40 mg SUBCUT Q12H [facility] Last Admin: 12/10/20 08:52 Dose: 40 mg Documented by: Guaifenesin (Guaifenesin 100 Mg/5 Ml Soln 5 Ml Ud Cup) 100 mg PO Q6H PRN PRN Reason: Cough Last Admin: 12/10/20 04:35 Dose: 100 mg Documented by: Remdesivir 100 mg/ Sodium (Chloride) 100 mls @ 100 mls/hr IV Q24H [facility] Stop: 12/13/20 16:29 Pantoprazole Sodium (Pantoprazole 40 Mg Tab.Cr) 40 mg PO DAILY [facility] Last Admin: 12/10/20 08:53 Dose: 40 mg Documented by: Sodium Chloride (Sodium Chloride 0.9% 10 Ml Syringe) 10 ml FLUSH ASDIRECTED PRN PRN Reason: Keep Vein Open Last Admin: 12/09/20 16:16 Dose: 10 ml Documented by: Sodium Chloride (Sodium Chloride 0.9% 2.5 Ml Syringe) 2.5 ml FLUSH ASDIRECTED PRN PRN Reason: Keep Vein Open Last Admin: 12/09/20 16:18 Dose: 2.5 ml Documented by: Discontinued Medications Albuterol (Albuterol 8 Gm Inhaler) 1 gm INH ONETIME ONE Stop: 12/09/20 15:39 Last Admin: 12/09/20 16:20 Dose: 2 puff Documented by: Albuterol/Ipratropium (Albuterol/Ipratropium 4 Gm Inhalation [place]) 1 gm INH Q4H PRN PRN Reason: Dyspnea Dexamethasone (Dexamethasone 10 Mg/Ml Sdv) 6 mg IVPUSH ONETIME ONE Stop: 12/09/20 15:40 Last Admin: 12/09/20 16:28 Dose: 6 mg Documented by: Enoxaparin Sodium (Enoxaparin 40 Mg/0.4 Ml Syringe) 40 mg SUBCUT Q24H [facility] Last Admin: 12/09/20 20:08 Dose: 40 mg Documented by: Remdesivir 200 mg/ Sodium (Chloride) 250 mls @ 250 mls/hr IV ONETIME ONE Stop: 12/09/20 17:43 Last Admin: 12/09/20 18:26 Dose: 250 mls/hr Documented by: - Exam General: Alert, Oriented, Cooperative HEENT: Mucous Membr. Moist/[place] Neck: No: Lymphadenopathy Lungs: Wheezing Cardiovascular: Tachycardia GI/Abdominal Exam: Normal Bowel Sounds, Soft, Non-Tender Extremities: No Pedal Edema - Patient Data Lab Results Last 24 hrs: Laboratory Results - last 24 hr 12/09/20 12/09/20 12/09/20 Range/Units 16:15 16:15 16:15 WBC 6.23 (4.0-11.0) K/uL RBC 4.99 (4.30-5.90) M/uL Hgb 14.4 (12.0-16.0) g/dL Hct 43.5 (36.0-46.0) % MCV 87.2 (80.0-98.0) fL MCH 28.9 (27.0-32.0) pg MCHC 33.1 (31.0-37.0) g/dL RDW Std Deviation 45.8 (28.0-62.0) fl RDW Coeff of Ana 15 (11.0-15.0) % Plt Count 276 (150-400) K/uL MPV 9.90 (7.40-12.00) fL Neut % (Auto) 70.6 (48.0-80.0) % Lymph % (Auto) 21.2 (16.0-40.0) % Worth % (Auto) 7.7 (0.0-15.0) % Eos % (Auto) 0.0 (0.0-7.0) % Baso % (Auto) 0.5 (0.0-1.5) % Neut # (Auto) 4.4 (1.4-5.7) K/uL Lymph # (Auto) 1.3 (0.6-2.4) K/uL Worth # (Auto) 0.5 (0.0-0.8) K/uL Eos # (Auto) 0.0 (0.0-0.7) K/uL Baso # (Auto) 0.0 (0.0-0.1) K/uL Nucleated RBC % 0.0 /100WBC Nucleated RBCs # 0 K/uL Sodium 139 (136-145) mmol/L Potassium 4.7 (3.5-5.1) mmol/L Chloride 102 (98-107) mmol/L Carbon Dioxide 25.8 (21.0-32.0) mmol/L BUN 12 (7.0-18.0) mg/dL Creatinine 0.6 (0.6-1.0) mg/dL Est Cr Clr Drug Dosing 90.84 mL/min Estimated GFR (MDRD) > 60.0 ml/min Glucose 130 H (74-106) mg/dL Calcium 8.7 (8.5-10.1) mg/dL Total Bilirubin 0.5 (0.2-1.0) mg/dL Direct Bilirubin 0.10 (0.0-0.5) mg/dL AST 57 H (15-37) IU/L ALT 42 (14-63) IU/L Alkaline Phosphatase 62 (46-116) U/L Troponin I < 0.050 (0.000-0.056) ng/mL Total Protein 7.0 (6.4-8.2) g/dL Albumin 3.1 L (3.4-5.0) g/dL Globulin 3.9 (2.6-4.0) g/dL Albumin/Globulin Ratio 0.8 L (0.9-1.6) 12/10/20 12/10/20 Range/Units 06:29 06:29 WBC 4.79 (4.0-11.0) K/uL RBC 4.88 (4.30-5.90) M/uL Hgb 14.0 (12.0-16.0) g/dL Hct 42.3 (36.0-46.0) % MCV 86.7 (80.0-98.0) fL MCH 28.7 (27.0-32.0) pg MCHC 33.1 (31.0-37.0) g/dL RDW Std Deviation 45.3 (28.0-62.0) fl RDW Coeff of Ana 14 (11.0-15.0) % Plt Count 356 (150-400) K/uL MPV 9.00 (7.40-12.00) fL Neut % (Auto) 72.0 (48.0-80.0) % Lymph % (Auto) 20.3 (16.0-40.0) % Worth % (Auto) 7.5 (0.0-15.0) % Eos % (Auto) 0.0 (0.0-7.0) % Baso % (Auto) 0.2 (0.0-1.5) % Neut # (Auto) 3.5 (1.4-5.7) K/uL Lymph # (Auto) 1.0 (0.6-2.4) K/uL Worth # (Auto) 0.4 (0.0-0.8) K/uL Eos # (Auto) 0.0 (0.0-0.7) K/uL Baso # (Auto) 0.0 (0.0-0.1) K/uL Nucleated RBC % 0.0 /100WBC Nucleated RBCs # 0 K/uL Sodium 137 (136-145) mmol/L Potassium 4.5 (3.5-5.1) mmol/L Chloride 102 (98-107) mmol/L Carbon Dioxide 24.1 (21.0-32.0) mmol/L BUN 10 (7.0-18.0) mg/dL Creatinine 0.7 (0.6-1.0) mg/dL Est Cr Clr Drug Dosing 81.01 mL/min Estimated GFR (MDRD) > 60.0 ml/min Glucose 146 H (74-106) mg/dL Calcium 8.2 L (8.5-10.1) mg/dL Total Bilirubin 0.5 (0.2-1.0) mg/dL Direct Bilirubin (0.0-0.5) mg/dL AST 40 H (15-37) IU/L ALT 45 (14-63) IU/L Alkaline Phosphatase 64 (46-116) U/L Troponin I (0.000-0.056) ng/mL Total Protein 7.4 (6.4-8.2) g/dL Albumin 2.9 L (3.4-5.0) g/dL Globulin 4.5 H (2.6-4.0) g/dL Albumin/Globulin Ratio 0.6 L (0.9-1.6) Result Diagrams: 12/10/20 06:29 12/10/20 06:29 Sepsis Event Note - Evaluation Sepsis Screening Result: No Definite Risk - Focused Exam Vital Signs: Vital Signs Temp Pulse Resp BP Pulse Ox 12/10/20 12:00 98.6 F 84 18 132/80 90 L 12/10/20 08:51 91 L 12/10/20 08:49 88 L 12/10/20 08:00 97.5 F 82 20 128/74 92 L 12/10/20 03:35 97.0 F 84 14 122/72 92 L - Problem List & Annotations (1) Asthma SNOMED Code(s): 715172955 Code(s): J45.909 - UNSPECIFIED ASTHMA, UNCOMPLICATED Status: Acute Current Visit: Yes (2) GERD (gastroesophageal reflux disease) SNOMED Code(s): 322022809 Code(s): K21.9 - GASTRO-ESOPHAGEAL REFLUX DISEASE WITHOUT ESOPHAGITIS Status: Acute Current Visit: Yes (3) COVID-19 SNOMED Code(s): 314702927 Code(s): U07.1 - COVID-19 Status: Acute Current Visit: Yes - Problem List Review Problem List Initiated/Reviewed/Updated: Yes - My Orders Last 24 Hours: My Active Orders 12/09/20 Dinner Regular Diet [DIET] 12/09/20 18:50 RT Post Treatment Assessment [RC] Click to Edit RT Pre-Treatment Assessment [RC] Click to Edit 12/09/20 18:51 guaiFENesin [Robitussin] 100 mg PO Q6H PRN 12/09/20 18:53 Code Status [Resuscitation Status] Routine 12/10/20 08:00 Enoxaparin [Lovenox] 40 mg SUBCUT Q12H 12/10/20 09:00 Pantoprazole [ProTONIX] 40 mg PO DAILY dexAMETHasone 6 mg PO DAILY 12/10/20 14:30 Albuterol/Ipratropium [Combivent Respimat] 0 gm INH Q4H Albuterol/Ipratropium [DuoNeb 3.0-0.5 MG/3 ML] 3 ml NEB Q4HRRT PRN 12/10/20 15:30 Remdesivir 100 mg Sodium Chloride 0.9% [Normal Saline AdvBag] 100 ml IV Q24H 12/11/20 05:11 CBC WITH AUTO DIFF [HEME] AM CMP [COMPREHENSIVE METABOLIC PN,CMP] [CHEM] AM 12/12/20 05:11 CBC WITH AUTO DIFF [HEME] AM CMP [COMPREHENSIVE METABOLIC PN,CMP] [CHEM] AM - Plan Plan:: 1. Acute respiratory failure secondary to COVID-19 pneumonia -Continue remdesivir 100 mg per IV route -Continue dexamethasone 6 mg per oral route -For shortness of breath the patient has Combivent as a scheduled medication, and duo nebs as needed -For cough the patient has Robitussin on board -We will continue to supply oxygen as needed -We will encourage incentive spirometry in the prone position -Daily CBC/CMP <Krissy Castaneda - Last Filed: 12/10/20 20:55> - General Info Subjective Update: I have seen and evaluated the patient and agree with the residents note unless specified in my note - Patient Data Vitals - Most Recent: Last Vital Signs Temp 36.4 C 12/10/20 20:20 Pulse 88 12/10/20 20:20 Resp 18 12/10/20 20:20 BP 135/79 12/10/20 20:20 Pulse Ox 90 L 12/10/20 20:20 I&O - Last 24 Hours: Intake & Output 12/10/20 12/10/20 12/10/20 06:59 14:59 22:59 Intake Total 800 1170 Output Total 800 1200 Balance 0 -30 Lab Results Last 24 Hours: Laboratory Results - last 24 hr 12/10/20 12/10/20 Range/Units 06:29 06:29 WBC 4.79 (4.0-11.0) K/uL RBC 4.88 (4.30-5.90) M/uL Hgb 14.0 (12.0-16.0) g/dL Hct 42.3 (36.0-46.0) % MCV 86.7 (80.0-98.0) fL MCH 28.7 (27.0-32.0) pg MCHC 33.1 (31.0-37.0) g/dL RDW Std Deviation 45.3 (28.0-62.0) fl RDW Coeff of Ana 14 (11.0-15.0) % Plt Count 356 (150-400) K/uL MPV 9.00 (7.40-12.00) fL Neut % (Auto) 72.0 (48.0-80.0) % Lymph % (Auto) 20.3 (16.0-40.0) % Worth % (Auto) 7.5 (0.0-15.0) % Eos % (Auto) 0.0 (0.0-7.0) % Baso % (Auto) 0.2 (0.0-1.5) % Neut # (Auto) 3.5 (1.4-5.7) K/uL Lymph # (Auto) 1.0 (0.6-2.4) K/uL Worth # (Auto) 0.4 (0.0-0.8) K/uL Eos # (Auto) 0.0 (0.0-0.7) K/uL Baso # (Auto) 0.0 (0.0-0.1) K/uL Nucleated RBC % 0.0 /100WBC Nucleated RBCs # 0 K/uL Sodium 137 (136-145) mmol/L Potassium 4.5 (3.5-5.1) mmol/L Chloride 102 (98-107) mmol/L Carbon Dioxide 24.1 (21.0-32.0) mmol/L BUN 10 (7.0-18.0) mg/dL Creatinine 0.7 (0.6-1.0) mg/dL Est Cr Clr Drug Dosing 81.01 mL/min Estimated GFR (MDRD) > 60.0 ml/min Glucose 146 H (74-106) mg/dL Calcium 8.2 L (8.5-10.1) mg/dL Total Bilirubin 0.5 (0.2-1.0) mg/dL AST 40 H (15-37) IU/L ALT 45 (14-63) IU/L Alkaline Phosphatase 64 (46-116) U/L Total Protein 7.4 (6.4-8.2) g/dL Albumin 2.9 L (3.4-5.0) g/dL Globulin 4.5 H (2.6-4.0) g/dL Albumin/Globulin Ratio 0.6 L (0.9-1.6) Med Orders - Current: Current Medications Albuterol/Ipratropium (Albuterol/Ipratropium 4 Gm Inhalation [place]) 0 gm INH Q4H [facility] Last Admin: 12/10/20 18:11 Dose: 1 puff Documented by: Albuterol/Ipratropium (Albuterol/Ipratropium 3.0-0.5 Mg/3 Ml Neb Soln) 3 ml NEB Q4HRRT PRN PRN Reason: Shortness of Breath Dexamethasone (Dexamethasone 4 Mg Tab) 6 mg PO DAILY [facility] Last Admin: 12/10/20 08:53 Dose: 6 mg Documented by: Enoxaparin Sodium (Enoxaparin 40 Mg/0.4 Ml Syringe) 40 mg SUBCUT Q12H [facility] Last Admin: 12/10/20 20:24 Dose: 40 mg Documented by: Guaifenesin (Guaifenesin 100 Mg/5 Ml Soln 5 Ml Ud Cup) 100 mg PO Q6H PRN PRN Reason: Cough Last Admin: 12/10/20 16:43 Dose: 100 mg Documented by: Remdesivir 100 mg/ Sodium (Chloride) 100 mls @ 100 mls/hr IV Q24H [facility] Stop: 12/13/20 16:29 Last Admin: 12/10/20 15:49 Dose: 100 mls/hr Documented by: Pantoprazole Sodium (Pantoprazole 40 Mg Tab.Cr) 40 mg PO DAILY [facility] Last Admin: 12/10/20 08:53 Dose: 40 mg Documented by: Fluticasone/Salmeterol (Fluticasone/Salmeterol 250-50 Mcg Inhalation Powder 14/Diskus) 0 puff INH BID [facility] Last Admin: 12/10/20 20:24 Dose: 1 puff Documented by: Sodium Chloride (Sodium Chloride 0.9% 10 Ml Syringe) 10 ml FLUSH ASDIRECTED PRN PRN Reason: Keep Vein Open Last Admin: 12/09/20 16:16 Dose: 10 ml Documented by: Sodium Chloride (Sodium Chloride 0.9% 2.5 Ml Syringe) 2.5 ml FLUSH ASDIRECTED PRN PRN Reason: Keep Vein Open Last Admin: 12/09/20 16:18 Dose: 2.5 ml Documented by: Discontinued Medications Albuterol (Albuterol 8 Gm Inhaler) 1 gm INH ONETIME ONE Stop: 12/09/20 15:39 Last Admin: 12/09/20 16:20 Dose: 2 puff Documented by: Albuterol/Ipratropium (Albuterol/Ipratropium 4 Gm Inhalation [place]) 1 gm INH Q4H PRN PRN Reason: Dyspnea Albuterol/Ipratropium (Albuterol/Ipratropium 3.0-0.5 Mg/3 Ml Neb Soln) 3 ml NEB Q4HRRT PRN PRN Reason: Shortness of Breath Dexamethasone (Dexamethasone 10 Mg/Ml Sdv) 6 mg IVPUSH ONETIME ONE Stop: 12/09/20 15:40 Last Admin: 12/09/20 16:28 Dose: 6 mg Documented by: Enoxaparin Sodium (Enoxaparin 40 Mg/0.4 Ml Syringe) 40 mg SUBCUT Q24H [facility] Last Admin: 12/09/20 20:08 Dose: 40 mg Documented by: Remdesivir 200 mg/ Sodium (Chloride) 250 mls @ 250 mls/hr IV ONETIME ONE Stop: 12/09/20 17:43 Last Admin: 12/09/20 18:26 Dose: 250 mls/hr Documented by: - Patient Data Lab Results Last 24 hrs: Laboratory Results - last 24 hr 12/10/20 12/10/20 Range/Units 06:29 06:29 WBC 4.79 (4.0-11.0) K/uL RBC 4.88 (4.30-5.90) M/uL Hgb 14.0 (12.0-16.0) g/dL Hct 42.3 (36.0-46.0) % MCV 86.7 (80.0-98.0) fL MCH 28.7 (27.0-32.0) pg MCHC 33.1 (31.0-37.0) g/dL RDW Std Deviation 45.3 (28.0-62.0) fl RDW Coeff of Ana 14 (11.0-15.0) % Plt Count 356 (150-400) K/uL MPV 9.00 (7.40-12.00) fL Neut % (Auto) 72.0 (48.0-80.0) % Lymph % (Auto) 20.3 (16.0-40.0) % Worth % (Auto) 7.5 (0.0-15.0) % Eos % (Auto) 0.0 (0.0-7.0) % Baso % (Auto) 0.2 (0.0-1.5) % Neut # (Auto) 3.5 (1.4-5.7) K/uL Lymph # (Auto) 1.0 (0.6-2.4) K/uL Worth # (Auto) 0.4 (0.0-0.8) K/uL Eos # (Auto) 0.0 (0.0-0.7) K/uL Baso # (Auto) 0.0 (0.0-0.1) K/uL Nucleated RBC % 0.0 /100WBC Nucleated RBCs # 0 K/uL Sodium 137 (136-145) mmol/L Potassium 4.5 (3.5-5.1) mmol/L Chloride 102 (98-107) mmol/L Carbon Dioxide 24.1 (21.0-32.0) mmol/L BUN 10 (7.0-18.0) mg/dL Creatinine 0.7 (0.6-1.0) mg/dL Est Cr Clr Drug Dosing 81.01 mL/min Estimated GFR (MDRD) > 60.0 ml/min Glucose 146 H (74-106) mg/dL Calcium 8.2 L (8.5-10.1) mg/dL Total Bilirubin 0.5 (0.2-1.0) mg/dL AST 40 H (15-37) IU/L ALT 45 (14-63) IU/L Alkaline Phosphatase 64 (46-116) U/L Total Protein 7.4 (6.4-8.2) g/dL Albumin 2.9 L (3.4-5.0) g/dL Globulin 4.5 H (2.6-4.0) g/dL Albumin/Globulin Ratio 0.6 L (0.9-1.6) Result Diagrams: 12/10/20 06:29 12/10/20 06:29 Sepsis Event Note - Focused Exam Vital Signs: Vital Signs Temp Pulse Resp BP Pulse Ox 12/10/20 20:20 36.4 C 88 18 135/79 90 L 12/10/20 15:57 36.8 C 81 18 133/89 91 L 12/10/20 12:00 37.0 C 84 18 132/80 90 L - My Orders Last 24 Hours: My Active Orders 12/09/20 21:14 Telemetry Monitoring [Cardiac Monitoring] [RC] Q8H 12/10/20 19:07 RT Post Treatment Assessment [RC] Click to Edit RT Pre-Treatment Assessment [RC] Click to Edit 12/10/20 21:00 Fluticasone/Salmeterol [Advair Diskus 250-50] 0 puff INH BID
[2020-12-10] MEDS: REMDESIVIR 100 MG in Sodium Chloride 0.9% 100 ML IV SCH (15:49)
[2020-12-10] MEDS: Albuterol/Ipratropium 4 GM Inhalation Spray INH SCH ×2 (18:11→22:38)
[2020-12-10] MEDS: Fluticasone/Salmeterol 250-50 MCG Inhalation Powder 14/Diskus INH SCH (20:24)
[2020-12-11] MEDS: Albuterol/Ipratropium 4 GM Inhalation Spray INH SCH ×7 (03:23→23:17)
[2020-12-11 06:59] LABS: BLOOD UREA NITROGEN,BUN 17 mg/dL (7.0-18.0); CARBON DIOXIDE,CO2 25.7 mmol/L (21.0-32.0); CHLORIDE,CL 104 mmol/L (98-107); GLUCOSE RANDOM 142 mg/dL (74-106); POTASSIUM,K 5.1 mmol/L (3.5-5.1); SODIUM,NA 138 mmol/L (136-145)
[2020-12-11] MEDS: Pantoprazole 40 MG Tab.CR PO SCH (08:14)
[2020-12-11] MEDS: Enoxaparin 40 MG/0.4 ML Syringe SUBCUT SCH ×2 (08:14→20:22)
[2020-12-11] MEDS: Dexamethasone 4 MG Tab PO SCH (08:14)
[2020-12-11] MEDS: Fluticasone/Salmeterol 250-50 MCG Inhalation Powder 14/Diskus INH SCH ×2 (08:16→20:24)
[2020-12-11] MEDS: guaiFENesin 100 MG/5 ML Soln 5 ML UD Cup PO PRN ×2 (11:16→23:17)
[2020-12-11] MEDS ORDERED: Polyethylene Glycol 3350 Powder 17 GM Packet PO PRN (11:21)
--- NOTE | 2020-12-11 11:47 | PCM.PN ---
- General Info Date of Service: 12/11/20 Subjective Update: The patient is a 60-year-old female, on day 3 of service, with a significant past medical history of asthma, GERD, DUB, polycystic ovaries, history of CMV, and anxiety, who was admitted due to acute respiratory failure secondary to COVID-19 pneumonia. The patient is currently saturating 90% on 1.5 L of oxygen. Upon interview with the patient today she admits that her shortness of breath has significantly improved and that her cough has resolved. She is complaining of constipation and as a result will be given MiraLAX at bedtime and is also been drinking prune juice. She is eating all her meals and drinking without any issues. She denies chest pain, palpitations, abdominal pain, and any issues with urination. She has no other health concerns at this time. - Review of Systems General: Reports: Fatigue. Denies: Fever HEENT: Denies: Headaches, Sore Throat Pulmonary: Reports: Shortness of Breath. Denies: Cough Cardiovascular: Denies: Chest Pain, Palpitations Gastrointestinal: Denies: Abdominal Pain Genitourinary: Denies: Dysuria - Patient Data Vitals - Most Recent: Last Vital Signs Temp 97.7 F 12/11/20 11:18 Pulse 81 12/11/20 11:18 Resp 16 12/11/20 11:18 BP 120/76 12/11/20 11:18 Pulse Ox 88 L 12/11/20 11:20 Weight - Most Recent: 270 lb I&O - Last 24 Hours: Intake & Output 12/10/20 12/11/20 12/11/20 22:59 06:59 14:59 Intake Total 1170 500 Output Total 1200 1800 Balance -30 -1300 Lab Results Last 24 Hours: Laboratory Results - last 24 hr 12/11/20 12/11/20 Range/Units 06:09 06:09 WBC 10.40 (4.0-11.0) K/uL RBC 4.81 (4.30-5.90) M/uL Hgb 13.9 (12.0-16.0) g/dL Hct 42.0 (36.0-46.0) % MCV 87.3 (80.0-98.0) fL MCH 28.9 (27.0-32.0) pg MCHC 33.1 (31.0-37.0) g/dL RDW Std Deviation 45.5 (28.0-62.0) fl RDW Coeff of Ana 14 (11.0-15.0) % Plt Count 444 H (150-400) K/uL MPV 8.50 (7.40-12.00) fL Add Manual Diff YES Neutrophils % (Manual) 76 (48.0-80.0) % Band Neutrophils % 2 % Lymphocytes % (Manual) 16 (16.0-40.0) % Monocytes % (Manual) 6 (0.0-15.0) % Absolute Seg Neuts 7.9 H (1.4-5.7) Band Neutrophils # 0.2 Lymphocytes # (Manual) 1.7 (0.6-2.4) Monocytes # (Manual) 0.6 (0.0-0.8) Sodium 138 (136-145) mmol/L Potassium 5.1 (3.5-5.1) mmol/L Chloride 104 (98-107) mmol/L Carbon Dioxide 25.7 (21.0-32.0) mmol/L BUN 17 (7.0-18.0) mg/dL Creatinine 0.7 (0.6-1.0) mg/dL Est Cr Clr Drug Dosing 81.01 mL/min Estimated GFR (MDRD) > 60.0 ml/min Glucose 142 H (74-106) mg/dL Calcium 8.5 (8.5-10.1) mg/dL Total Bilirubin 0.4 (0.2-1.0) mg/dL AST 32 (15-37) IU/L ALT 47 (14-63) IU/L Alkaline Phosphatase 62 (46-116) U/L Total Protein 6.7 (6.4-8.2) g/dL Albumin 3.0 L (3.4-5.0) g/dL Globulin 3.7 (2.6-4.0) g/dL Albumin/Globulin Ratio 0.8 L (0.9-1.6) Med Orders - Current: Current Medications Albuterol/Ipratropium (Albuterol/Ipratropium 4 Gm Inhalation [place]) 0 gm INH Q4H [facility] Last Admin: 12/11/20 10:19 Dose: 1 puff Documented by: Albuterol/Ipratropium (Albuterol/Ipratropium 3.0-0.5 Mg/3 Ml Neb Soln) 3 ml NEB Q4HRRT PRN PRN Reason: Shortness of Breath Dexamethasone (Dexamethasone 4 Mg Tab) 6 mg PO DAILY [facility] Last Admin: 12/11/20 08:14 Dose: 6 mg Documented by: Enoxaparin Sodium (Enoxaparin 40 Mg/0.4 Ml Syringe) 40 mg SUBCUT Q12H [facility] Last Admin: 12/11/20 08:14 Dose: 40 mg Documented by: Guaifenesin (Guaifenesin 100 Mg/5 Ml Soln 5 Ml Ud Cup) 100 mg PO Q6H PRN PRN Reason: Cough Last Admin: 12/11/20 11:16 Dose: 100 mg Documented by: Remdesivir 100 mg/ Sodium (Chloride) 100 mls @ 100 mls/hr IV Q24H [facility] Stop: 12/13/20 16:29 Last Admin: 12/10/20 15:49 Dose: 100 mls/hr Documented by: Pantoprazole Sodium (Pantoprazole 40 Mg Tab.Cr) 40 mg PO DAILY [facility] Last Admin: 12/11/20 08:14 Dose: 40 mg Documented by: Polyethylene Glycol (Polyethylene Glycol 3350 Powder 17 Gm Packet) 17 gm PO BEDTIME PRN PRN Reason: Constipation Fluticasone/Salmeterol (Fluticasone/Salmeterol 250-50 Mcg Inhalation Powder 14/Diskus) 0 puff INH BID [facility] Last Admin: 12/11/20 08:16 Dose: 1 puff Documented by: Sodium Chloride (Sodium Chloride 0.9% 10 Ml Syringe) 10 ml FLUSH ASDIRECTED PRN PRN Reason: Keep Vein Open Last Admin: 12/09/20 16:16 Dose: 10 ml Documented by: Sodium Chloride (Sodium Chloride 0.9% 2.5 Ml Syringe) 2.5 ml FLUSH ASDIRECTED PRN PRN Reason: Keep Vein Open Last Admin: 12/09/20 16:18 Dose: 2.5 ml Documented by: Discontinued Medications Albuterol (Albuterol 8 Gm Inhaler) 1 gm INH ONETIME ONE Stop: 12/09/20 15:39 Last Admin: 12/09/20 16:20 Dose: 2 puff Documented by: Albuterol/Ipratropium (Albuterol/Ipratropium 4 Gm Inhalation [place]) 1 gm INH Q4H PRN PRN Reason: Dyspnea Albuterol/Ipratropium (Albuterol/Ipratropium 3.0-0.5 Mg/3 Ml Neb Soln) 3 ml NEB Q4HRRT PRN PRN Reason: Shortness of Breath Dexamethasone (Dexamethasone 10 Mg/Ml Sdv) 6 mg IVPUSH ONETIME ONE Stop: 12/09/20 15:40 Last Admin: 12/09/20 16:28 Dose: 6 mg Documented by: Enoxaparin Sodium (Enoxaparin 40 Mg/0.4 Ml Syringe) 40 mg SUBCUT Q24H [facility] Last Admin: 12/09/20 20:08 Dose: 40 mg Documented by: Remdesivir 200 mg/ Sodium (Chloride) 250 mls @ 250 mls/hr IV ONETIME ONE Stop: 12/09/20 17:43 Last Admin: 12/09/20 18:26 Dose: 250 mls/hr Documented by: - Exam General: Alert, Oriented, Cooperative HEENT: Mucous Membr. Moist/[place] Neck: No: Lymphadenopathy Lungs: Wheezing Cardiovascular: Regular Rate, Regular Rhythm GI/Abdominal Exam: Normal Bowel Sounds, Soft, Non-Tender - Patient Data Lab Results Last 24 hrs: Laboratory Results - last 24 hr 12/11/20 12/11/20 Range/Units 06:09 06:09 WBC 10.40 (4.0-11.0) K/uL RBC 4.81 (4.30-5.90) M/uL Hgb 13.9 (12.0-16.0) g/dL Hct 42.0 (36.0-46.0) % MCV 87.3 (80.0-98.0) fL MCH 28.9 (27.0-32.0) pg MCHC 33.1 (31.0-37.0) g/dL RDW Std Deviation 45.5 (28.0-62.0) fl RDW Coeff of Ana 14 (11.0-15.0) % Plt Count 444 H (150-400) K/uL MPV 8.50 (7.40-12.00) fL Add Manual Diff YES Neutrophils % (Manual) 76 (48.0-80.0) % Band Neutrophils % 2 % Lymphocytes % (Manual) 16 (16.0-40.0) % Monocytes % (Manual) 6 (0.0-15.0) % Absolute Seg Neuts 7.9 H (1.4-5.7) Band Neutrophils # 0.2 Lymphocytes # (Manual) 1.7 (0.6-2.4) Monocytes # (Manual) 0.6 (0.0-0.8) Sodium 138 (136-145) mmol/L Potassium 5.1 (3.5-5.1) mmol/L Chloride 104 (98-107) mmol/L Carbon Dioxide 25.7 (21.0-32.0) mmol/L BUN 17 (7.0-18.0) mg/dL Creatinine 0.7 (0.6-1.0) mg/dL Est Cr Clr Drug Dosing 81.01 mL/min Estimated GFR (MDRD) > 60.0 ml/min Glucose 142 H (74-106) mg/dL Calcium 8.5 (8.5-10.1) mg/dL Total Bilirubin 0.4 (0.2-1.0) mg/dL AST 32 (15-37) IU/L ALT 47 (14-63) IU/L Alkaline Phosphatase 62 (46-116) U/L Total Protein 6.7 (6.4-8.2) g/dL Albumin 3.0 L (3.4-5.0) g/dL Globulin 3.7 (2.6-4.0) g/dL Albumin/Globulin Ratio 0.8 L (0.9-1.6) Result Diagrams: 12/11/20 06:09 12/11/20 06:09 Sepsis Event Note - Evaluation Sepsis Screening Result: No Definite Risk - Focused Exam Vital Signs: Vital Signs Temp Pulse Resp BP Pulse Ox 12/11/20 11:20 88 L 12/11/20 11:18 97.7 F 81 16 120/76 90 L 12/11/20 11:15 90 L 12/11/20 11:10 92 L 12/11/20 11:05 85 L 12/11/20 08:00 97.7 F 83 18 123/69 90 L 12/11/20 03:00 97.1 F 79 14 119/69 90 L - Problem List & Annotations (1) Asthma SNOMED Code(s): 419844480 Code(s): J45.909 - UNSPECIFIED ASTHMA, UNCOMPLICATED Status: Acute Current Visit: Yes (2) GERD (gastroesophageal reflux disease) SNOMED Code(s): 992223751 Code(s): K21.9 - GASTRO-ESOPHAGEAL REFLUX DISEASE WITHOUT ESOPHAGITIS Status: Acute Current Visit: Yes (3) COVID-19 SNOMED Code(s): 809828745 Code(s): U07.1 - COVID-19 Status: Acute Current Visit: Yes - Problem List Review Problem List Initiated/Reviewed/Updated: Yes - My Orders Last 24 Hours: My Active Orders 12/10/20 14:30 Albuterol/Ipratropium [Combivent Respimat] 0 gm INH Q4H 12/10/20 15:30 Remdesivir 100 mg Sodium Chloride 0.9% [Normal Saline AdvBag] 100 ml IV Q24H 12/10/20 18:00 RT Aerosol Therapy [RC] Q4HR Albuterol/Ipratropium [DuoNeb 3.0-0.5 MG/3 ML] 3 ml NEB Q4HRRT PRN 12/11/20 11:21 polyethylene glycoL 3350 [MiraLAX] 17 gm PO BEDTIME PRN 12/12/20 05:11 CBC WITH AUTO DIFF [HEME] AM CMP [COMPREHENSIVE METABOLIC PN,CMP] [CHEM] AM - Plan Plan:: 1. Acute respiratory failure secondary to COVID-19 pneumonia -Continue remdesivir 100 mg per IV route -Continue dexamethasone 6 mg per oral route -For shortness of breath the patient has Combivent as a scheduled medication, and duo nebs as needed -For cough the patient has Robitussin on board -We will continue to supply oxygen as needed -We will encourage incentive spirometry in the prone position -Daily CBC/CMP 2. Constipation -We have given the patient prune juice and will start her on MiraLAX at bedtime
[2020-12-11] MEDS: REMDESIVIR 100 MG in Sodium Chloride 0.9% 100 ML IV SCH (15:29)
[2020-12-12] MEDS: Albuterol/Ipratropium 4 GM Inhalation Spray INH SCH ×6 (01:50→23:45)
[2020-12-12 06:44] LABS: BLOOD UREA NITROGEN,BUN 19 mg/dL (7.0-18.0); CARBON DIOXIDE,CO2 22.7 mmol/L (21.0-32.0); CHLORIDE,CL 103 mmol/L (98-107); GLUCOSE RANDOM 131 mg/dL (74-106); POTASSIUM,K 4.6 mmol/L (3.5-5.1); SODIUM,NA 137 mmol/L (136-145)
[2020-12-12] MEDS: Enoxaparin 40 MG/0.4 ML Syringe SUBCUT SCH ×2 (08:08→20:15)
[2020-12-12] MEDS: Dexamethasone 4 MG Tab PO SCH (08:08)
[2020-12-12] MEDS: Pantoprazole 40 MG Tab.CR PO SCH (08:08)
[2020-12-12] MEDS: Fluticasone/Salmeterol 250-50 MCG Inhalation Powder 14/Diskus INH SCH ×2 (08:11→20:16)
--- NOTE | 2020-12-12 12:40 | PCM.PN ---
- General Info Date of Service: 12/12/20 - Review of Systems Systems Review Comment:: reports flushness and nausea after remdesivir the last two nights. reports fatigue and shortness of breath - Patient Data Vitals - Most Recent: Last Vital Signs Temp 36.2 C 12/12/20 11:00 Pulse 80 12/12/20 11:00 Resp 20 12/12/20 11:00 BP 126/84 12/12/20 11:00 Pulse Ox 93 L 12/12/20 11:00 Weight - Most Recent: 122.47 kg I&O - Last 24 Hours: Intake & Output 12/11/20 12/12/20 12/12/20 22:59 06:59 14:59 Intake Total 1250 1200 Output Total 1180 1800 Balance 70 -600 Lab Results Last 24 Hours: Laboratory Results - last 24 hr 12/12/20 12/12/20 Range/Units 05:59 05:59 WBC 11.36 H (4.0-11.0) K/uL RBC 4.85 (4.30-5.90) M/uL Hgb 14.1 (12.0-16.0) g/dL Hct 42.5 (36.0-46.0) % MCV 87.6 (80.0-98.0) fL MCH 29.1 (27.0-32.0) pg MCHC 33.2 (31.0-37.0) g/dL RDW Std Deviation 46.2 (28.0-62.0) fl RDW Coeff of Ana 14 (11.0-15.0) % Plt Count 432 H (150-400) K/uL MPV 8.80 (7.40-12.00) fL Neut % (Auto) 75.2 (48.0-80.0) % Lymph % (Auto) 14.4 L (16.0-40.0) % [place] % (Auto) 10.2 (0.0-15.0) % Eos % (Auto) 0.0 (0.0-7.0) % Baso % (Auto) 0.2 (0.0-1.5) % Neut # (Auto) 8.5 H (1.4-5.7) K/uL Lymph # (Auto) 1.6 (0.6-2.4) K/uL [place] # (Auto) 1.2 H (0.0-0.8) K/uL Eos # (Auto) 0.0 (0.0-0.7) K/uL Baso # (Auto) 0.0 (0.0-0.1) K/uL Nucleated RBC % 0.0 /100WBC Nucleated RBCs # 0 K/uL Sodium 137 (136-145) mmol/L Potassium 4.6 (3.5-5.1) mmol/L Chloride 103 (98-107) mmol/L Carbon Dioxide 22.7 (21.0-32.0) mmol/L BUN 19 H (7.0-18.0) mg/dL Creatinine 0.8 (0.6-1.0) mg/dL Est Cr Clr Drug Dosing 70.88 mL/min Estimated GFR (MDRD) > 60.0 ml/min Glucose 131 H (74-106) mg/dL Calcium 8.8 (8.5-10.1) mg/dL Total Bilirubin 0.3 (0.2-1.0) mg/dL AST 34 (15-37) IU/L ALT 63 (14-63) IU/L Alkaline Phosphatase 58 (46-116) U/L Total Protein 7.1 (6.4-8.2) g/dL Albumin 2.9 L (3.4-5.0) g/dL Globulin 4.2 H (2.6-4.0) g/dL Albumin/Globulin Ratio 0.7 L (0.9-1.6) Med Orders - Current: Current Medications Albuterol/Ipratropium (Albuterol/Ipratropium 4 Gm Inhalation [place]) 0 gm INH Q4H [facility] Last Admin: 12/12/20 10:35 Dose: 1 puff Documented by: Albuterol/Ipratropium (Albuterol/Ipratropium 3.0-0.5 Mg/3 Ml Neb Soln) 3 ml NEB Q4HRRT PRN PRN Reason: Shortness of Breath Dexamethasone (Dexamethasone 4 Mg Tab) 6 mg PO DAILY [facility] Last Admin: 12/12/20 08:08 Dose: 6 mg Documented by: Enoxaparin Sodium (Enoxaparin 40 Mg/0.4 Ml Syringe) 40 mg SUBCUT Q12H [facility] Last Admin: 12/12/20 08:08 Dose: 40 mg Documented by: Guaifenesin (Guaifenesin 100 Mg/5 Ml Soln 5 Ml Ud Cup) 100 mg PO Q6H PRN PRN Reason: Cough Last Admin: 12/11/20 23:17 Dose: 100 mg Documented by: Pantoprazole Sodium (Pantoprazole 40 Mg Tab.Cr) 40 mg PO DAILY [facility] Last Admin: 12/12/20 08:08 Dose: 40 mg Documented by: Polyethylene Glycol (Polyethylene Glycol 3350 Powder 17 Gm Packet) 17 gm PO BEDTIME PRN PRN Reason: Constipation Fluticasone/Salmeterol (Fluticasone/Salmeterol 250-50 Mcg Inhalation Powder 14/Diskus) 0 puff INH BID [facility] Last Admin: 12/12/20 08:11 Dose: 1 puff Documented by: Sodium Chloride (Sodium Chloride 0.9% 10 Ml Syringe) 10 ml FLUSH ASDIRECTED PRN PRN Reason: Keep Vein Open Last Admin: 12/09/20 16:16 Dose: 10 ml Documented by: Sodium Chloride (Sodium Chloride 0.9% 2.5 Ml Syringe) 2.5 ml FLUSH ASDIRECTED PRN PRN Reason: Keep Vein Open Last Admin: 12/09/20 16:18 Dose: 2.5 ml Documented by: Discontinued Medications Albuterol (Albuterol 8 Gm Inhaler) 1 gm INH ONETIME ONE Stop: 12/09/20 15:39 Last Admin: 12/09/20 16:20 Dose: 2 puff Documented by: Albuterol/Ipratropium (Albuterol/Ipratropium 4 Gm Inhalation [place]) 1 gm INH Q4H PRN PRN Reason: Dyspnea Albuterol/Ipratropium (Albuterol/Ipratropium 3.0-0.5 Mg/3 Ml Neb Soln) 3 ml NEB Q4HRRT PRN PRN Reason: Shortness of Breath Dexamethasone (Dexamethasone 10 Mg/Ml Sdv) 6 mg IVPUSH ONETIME ONE Stop: 12/09/20 15:40 Last Admin: 12/09/20 16:28 Dose: 6 mg Documented by: Enoxaparin Sodium (Enoxaparin 40 Mg/0.4 Ml Syringe) 40 mg SUBCUT Q24H [facility] Last Admin: 12/09/20 20:08 Dose: 40 mg Documented by: Remdesivir 200 mg/ Sodium (Chloride) 250 mls @ 250 mls/hr IV ONETIME ONE Stop: 12/09/20 17:43 Last Admin: 12/09/20 18:26 Dose: 250 mls/hr Documented by: Remdesivir 100 mg/ Sodium (Chloride) 100 mls @ 100 mls/hr IV Q24H [facility] Stop: 12/13/20 16:29 Last Admin: 12/11/20 15:29 Dose: 100 mls/hr Documented by: - Exam General: Alert, Oriented Neck: Supple Lungs: Clear to Auscultation, Normal Respiratory Effort Cardiovascular: Regular Rate, Regular Rhythm GI/Abdominal Exam: Soft, Non-Tender, No Distention Extremities: Non-Tender, No Pedal Edema Skin: Warm, Dry, Intact - Patient Data Lab Results Last 24 hrs: Laboratory Results - last 24 hr 12/12/20 12/12/20 Range/Units 05:59 05:59 WBC 11.36 H (4.0-11.0) K/uL RBC 4.85 (4.30-5.90) M/uL Hgb 14.1 (12.0-16.0) g/dL Hct 42.5 (36.0-46.0) % MCV 87.6 (80.0-98.0) fL MCH 29.1 (27.0-32.0) pg MCHC 33.2 (31.0-37.0) g/dL RDW Std Deviation 46.2 (28.0-62.0) fl RDW Coeff of Ana 14 (11.0-15.0) % Plt Count 432 H (150-400) K/uL MPV 8.80 (7.40-12.00) fL Neut % (Auto) 75.2 (48.0-80.0) % Lymph % (Auto) 14.4 L (16.0-40.0) % [place] % (Auto) 10.2 (0.0-15.0) % Eos % (Auto) 0.0 (0.0-7.0) % Baso % (Auto) 0.2 (0.0-1.5) % Neut # (Auto) 8.5 H (1.4-5.7) K/uL Lymph # (Auto) 1.6 (0.6-2.4) K/uL [place] # (Auto) 1.2 H (0.0-0.8) K/uL Eos # (Auto) 0.0 (0.0-0.7) K/uL Baso # (Auto) 0.0 (0.0-0.1) K/uL Nucleated RBC % 0.0 /100WBC Nucleated RBCs # 0 K/uL Sodium 137 (136-145) mmol/L Potassium 4.6 (3.5-5.1) mmol/L Chloride 103 (98-107) mmol/L Carbon Dioxide 22.7 (21.0-32.0) mmol/L BUN 19 H (7.0-18.0) mg/dL Creatinine 0.8 (0.6-1.0) mg/dL Est Cr Clr Drug Dosing 70.88 mL/min Estimated GFR (MDRD) > 60.0 ml/min Glucose 131 H (74-106) mg/dL Calcium 8.8 (8.5-10.1) mg/dL Total Bilirubin 0.3 (0.2-1.0) mg/dL AST 34 (15-37) IU/L ALT 63 (14-63) IU/L Alkaline Phosphatase 58 (46-116) U/L Total Protein 7.1 (6.4-8.2) g/dL Albumin 2.9 L (3.4-5.0) g/dL Globulin 4.2 H (2.6-4.0) g/dL Albumin/Globulin Ratio 0.7 L (0.9-1.6) Result Diagrams: 12/12/20 05:59 12/12/20 05:59 Sepsis Event Note - Evaluation Sepsis Screening Result: No Definite Risk - Focused Exam Vital Signs: Vital Signs Temp Pulse Resp BP Pulse Ox 12/12/20 11:00 36.2 C 80 20 126/84 93 L 12/12/20 07:59 36.6 C 73 17 134/78 95 12/12/20 03:26 36.1 C 63 20 128/62 91 L - Problem List & Annotations (1) COVID-19 SNOMED Code(s): 372846111 Code(s): U07.1 - COVID-19 Status: Acute Current Visit: Yes - Problem List Review Problem List Initiated/Reviewed/Updated: Yes - Plan Plan:: 1. Acute respiratory failure secondary to COVID-19 pneumonia -will stop remdesivir due to adverse symptoms -Continue dexamethasone 6 mg per oral route -on 1 L NC dispo: if continue to improve anticipate discharge home tomorrow.
[2020-12-12] MEDS: guaiFENesin 100 MG/5 ML Soln 5 ML UD Cup PO PRN (23:45)
[2020-12-13] MEDS: Albuterol/Ipratropium 4 GM Inhalation Spray INH SCH ×3 (04:04→10:26)
[2020-12-13 06:56] LABS: BLOOD UREA NITROGEN,BUN 22 mg/dL (7.0-18.0); CARBON DIOXIDE,CO2 25.4 mmol/L (21.0-32.0); CHLORIDE,CL 102 mmol/L (98-107); GLUCOSE RANDOM 128 mg/dL (74-106); POTASSIUM,K 4.9 mmol/L (3.5-5.1); SODIUM,NA 136 mmol/L (136-145)
[2020-12-13 08:53] VITALS: BP 119/66; PULSE 88
[2020-12-13] MEDS: Enoxaparin 40 MG/0.4 ML Syringe SUBCUT SCH (08:54)
[2020-12-13] MEDS: Dexamethasone 4 MG Tab PO SCH (08:55)
[2020-12-13] MEDS: Fluticasone/Salmeterol 250-50 MCG Inhalation Powder 14/Diskus INH SCH (08:55)
[2020-12-13] MEDS: guaiFENesin 100 MG/5 ML Soln 5 ML UD Cup PO PRN (08:55)
[2020-12-13] MEDS: Pantoprazole 40 MG Tab.CR PO SCH (08:55)
--- NOTE | 2020-12-13 11:02 | PCM.DCSUM1 ---
<Bradley Donahue - Last Filed: 12/13/20 10:55> Discharge Summary - Hospital Course Free Text/Narrative:: The patient is a 60-year-old female, on day 5 of service, with a significant past medical history of asthma, GERD, DUB, polycystic ovaries, history of CMV, and anxiety, who was admitted due to acute respiratory failure secondary to COVID-19 pneumonia. Throughout her hospital course, the patient was saturating above 90% while on 1 to 1.5 L of oxygen. For her COVID-19 pneumonia, she was taking dexamethasone per oral route, remdesivir per IV route, and also had Combivent, Advair, duo nebs, and Robitussin on board. Two days ago she developed a reaction to the remdesivir including flushing and itching, and as a result it was discontinued. These COVID-19 medications collectively improved her clinical status to the point where she no longer requires oxygen and will not be sent home on it. A walking trial today displayed her lack of need for any home oxygen apparatus. She will be sent home with a prescription for dexamethasone for an additional 5 days, Robitussin cough syrup, and can take her hospital Combivent with her. She has been advised to be compliant with her medications and to take them at scheduled times, as well as to follow-up with her PCP Dr. Nguyen on 11/17/2020 at 4:30 PM. While in hospital the patient was also suffering from constipation and as a result was given prune juice and MiraLAX in order to promote evacuation. These regimens increased the amount of bowel movements the patient had and she is no longer constipated. Lastly, the patient was counseled on returning to the hospital if she experiences respiratory difficulty, shortness of breath, chest pain, or palpitations. The patient is now stable and can be safely discharged. - Discharge Data Discharge Date: 12/13/20 Discharge Disposition: Home, Self-Care 01 Condition: Stable - Referral to Home Health Primary Care Physician: PCP None - Discharge Diagnosis/Problem(s) (1) Asthma SNOMED Code(s): 380154600 ICD Code: J45.909 - UNSPECIFIED ASTHMA, UNCOMPLICATED Status: Acute (2) GERD (gastroesophageal reflux disease) SNOMED Code(s): 764136362 ICD Code: K21.9 - GASTRO-ESOPHAGEAL REFLUX DISEASE WITHOUT ESOPHAGITIS Status: Acute (3) COVID-19 SNOMED Code(s): 474652607 ICD Code: U07.1 - COVID-19 Status: Acute - Patient Instructions Diet: Regular Diet as Tolerated Activity: As Tolerated Showering/Bathing: May Shower Other/Special Instructions: -If you experience respiratory difficulty, shortness of breath, chest pain, or palpitations, return to the hospital. -Be compliant with your medications and take them at scheduled times. -Follow-up with your PCP Dr. Nguyen on 12/17/2020 at 4:30 PM - Discharge Plan *PRESCRIPTION DRUG MONITORING PROGRAM REVIEWED*: Not Applicable *COPY OF PRESCRIPTION DRUG MONITORING REPORT IN PATIENT RICHARD: Not Applicable Prescriptions/Med Rec: dexAMETHasone [Dexamethasone] 6 mg PO DAILY 5 Days #8 tablet guaiFENesin [Robitussin] 100 mg PO Q6H PRN #120 ml PRN Reason: Cough Home Medications: Home Meds Albuterol/Ipratropium [DuoNeb 3.0-0.5 MG/3 ML] 1 dose NEB ASDIRECTED PRN 05/24/16 [History] Fluticasone Propion/Salmeterol [Advair 250-50 Diskus] 1 puff IH BID 05/27/16 [History] Albuterol/Ipratropium [Combivent Respimat] 0 gm INH Q4H inhaler 12/13/20 [Rx] dexAMETHasone [Dexamethasone] 6 mg PO DAILY 5 Days #8 tablet 12/13/20 [Rx] guaiFENesin [Robitussin] 100 mg PO Q6H PRN #120 ml 12/13/20 [Rx] Patient Handouts: COVID-19, Dextromethorphan; Guaifenesin oral solution, 10 Things You Can Do to Manage Your COVID-19 Symptoms at Home - [facility] (08/22/2020), Guaifenesin oral solution and syrup, COVID-19: How to Protect Yourself and Others - CDC, Infection Prevention in the Home, Dexamethasone tablets Referrals: Stew Nguyen DO [Physician] - 12/17/20 4:30 pm - Discharge Summary/Plan Comment DC Time >30 min.: Yes Total # of Minutes for Discharge Time: 35 minutes - Review of Systems General: Denies: Fever, Fatigue, Chills HEENT: Denies: Headaches, Sore Throat Pulmonary: Denies: Shortness of Breath, Cough Cardiovascular: Denies: Chest Pain, Palpitations Gastrointestinal: Denies: Abdominal Pain, Constipation Genitourinary: Denies: Dysuria - Patient Data Vitals - Most Recent: Last Vital Signs Temp 97.7 F 12/13/20 08:52 Pulse 88 12/13/20 08:52 Resp 20 12/13/20 09:15 BP 119/66 12/13/20 08:52 Pulse Ox 93 L 12/13/20 09:15 Weight - Most Recent: 122.47 kg I&O - Last 24 hours: Intake & Output 12/12/20 12/13/20 12/13/20 22:59 06:59 14:59 Intake Total 1640 1200 Output Total 2100 2200 Balance -460 -1000 Lab Results - Last 24 hrs: Laboratory Results - last 24 hr 12/13/20 12/13/20 Range/Units 06:10 06:10 WBC 11.91 H (4.0-11.0) K/uL RBC 4.96 (4.30-5.90) M/uL Hgb 14.3 (12.0-16.0) g/dL Hct 43.6 (36.0-46.0) % MCV 87.9 (80.0-98.0) fL MCH 28.8 (27.0-32.0) pg MCHC 32.8 (31.0-37.0) g/dL RDW Std Deviation 46.5 (28.0-62.0) fl RDW Coeff of Ana 15 (11.0-15.0) % Plt Count 501 H (150-400) K/uL MPV 8.80 (7.40-12.00) fL Neut % (Auto) 72.3 (48.0-80.0) % Lymph % (Auto) 16.0 (16.0-40.0) % [place] % (Auto) 11.5 (0.0-15.0) % Eos % (Auto) 0.1 (0.0-7.0) % Baso % (Auto) 0.1 (0.0-1.5) % Neut # (Auto) 8.6 H (1.4-5.7) K/uL Lymph # (Auto) 1.9 (0.6-2.4) K/uL [place] # (Auto) 1.4 H (0.0-0.8) K/uL Eos # (Auto) 0.0 (0.0-0.7) K/uL Baso # (Auto) 0.0 (0.0-0.1) K/uL Nucleated RBC % 0.0 /100WBC Nucleated RBCs # 0 K/uL Sodium 136 (136-145) mmol/L Potassium 4.9 (3.5-5.1) mmol/L Chloride 102 (98-107) mmol/L Carbon Dioxide 25.4 (21.0-32.0) mmol/L BUN 22 H (7.0-18.0) mg/dL Creatinine 0.8 (0.6-1.0) mg/dL Est Cr Clr Drug Dosing 70.88 mL/min Estimated GFR (MDRD) > 60.0 ml/min Glucose 128 H (74-106) mg/dL Calcium 8.5 (8.5-10.1) mg/dL Total Bilirubin 0.3 (0.2-1.0) mg/dL AST 21 (15-37) IU/L ALT 56 (14-63) IU/L Alkaline Phosphatase 62 (46-116) U/L Total Protein 7.1 (6.4-8.2) g/dL Albumin 2.7 L (3.4-5.0) g/dL Globulin 4.4 H (2.6-4.0) g/dL Albumin/Globulin Ratio 0.6 L (0.9-1.6) Med Orders - Current: Current Medications Albuterol/Ipratropium (Albuterol/Ipratropium 4 Gm Inhalation Sarah Ann) 0 gm INH Q4H [facility] Last Admin: 12/13/20 10:26 Dose: 1 puff Documented by: Albuterol/Ipratropium (Albuterol/Ipratropium 3.0-0.5 Mg/3 Ml Neb Soln) 3 ml NEB Q4HRRT PRN PRN Reason: Shortness of Breath Dexamethasone (Dexamethasone 4 Mg Tab) 6 mg PO DAILY [facility] Last Admin: 12/13/20 08:55 Dose: 6 mg Documented by: Enoxaparin Sodium (Enoxaparin 40 Mg/0.4 Ml Syringe) 40 mg SUBCUT Q12H [facility] Last Admin: 12/13/20 08:54 Dose: 40 mg Documented by: Guaifenesin (Guaifenesin 100 Mg/5 Ml Soln 5 Ml Ud Cup) 100 mg PO Q6H PRN PRN Reason: Cough Last Admin: 12/13/20 08:55 Dose: 100 mg Documented by: Pantoprazole Sodium (Pantoprazole 40 Mg Tab.Cr) 40 mg PO DAILY [facility] Last Admin: 12/13/20 08:55 Dose: 40 mg Documented by: Polyethylene Glycol (Polyethylene Glycol 3350 Powder 17 Gm Packet) 17 gm PO BEDTIME PRN PRN Reason: Constipation Fluticasone/Salmeterol (Fluticasone/Salmeterol 250-50 Mcg Inhalation Powder 14/Diskus) 0 puff INH BID [facility] Last Admin: 12/13/20 08:55 Dose: 1 puff Documented by: Sodium Chloride (Sodium Chloride 0.9% 10 Ml Syringe) 10 ml FLUSH ASDIRECTED PRN PRN Reason: Keep Vein Open Last Admin: 12/09/20 16:16 Dose: 10 ml Documented by: Sodium Chloride (Sodium Chloride 0.9% 2.5 Ml Syringe) 2.5 ml FLUSH ASDIRECTED PRN PRN Reason: Keep Vein Open Last Admin: 12/09/20 16:18 Dose: 2.5 ml Documented by: Discontinued Medications Albuterol (Albuterol 8 Gm Inhaler) 1 gm INH ONETIME ONE Stop: 12/09/20 15:39 Last Admin: 12/09/20 16:20 Dose: 2 puff Documented by: Albuterol/Ipratropium (Albuterol/Ipratropium 4 Gm Inhalation Sarah Ann) 1 gm INH Q4H PRN PRN Reason: Dyspnea Albuterol/Ipratropium (Albuterol/Ipratropium 3.0-0.5 Mg/3 Ml Neb Soln) 3 ml NEB Q4HRRT PRN PRN Reason: Shortness of Breath Dexamethasone (Dexamethasone 10 Mg/Ml Sdv) 6 mg IVPUSH ONETIME ONE Stop: 12/09/20 15:40 Last Admin: 12/09/20 16:28 Dose: 6 mg Documented by: Enoxaparin Sodium (Enoxaparin 40 Mg/0.4 Ml Syringe) 40 mg SUBCUT Q24H [facility] Last Admin: 12/09/20 20:08 Dose: 40 mg Documented by: Remdesivir 200 mg/ Sodium (Chloride) 250 mls @ 250 mls/hr IV ONETIME ONE Stop: 12/09/20 17:43 Last Admin: 12/09/20 18:26 Dose: 250 mls/hr Documented by: Remdesivir 100 mg/ Sodium (Chloride) 100 mls @ 100 mls/hr IV Q24H [facility] Stop: 12/13/20 16:29 Last Admin: 12/11/20 15:29 Dose: 100 mls/hr Documented by: - Exam General: Reports: Oriented, Cooperative HEENT: Reports: Mucous Membr. Moist/[place] Neck: Denies: Lymphadenopathy Lungs: Reports: Clear to Auscultation, Normal Respiratory Effort Cardiovascular: Reports: Regular Rate, Regular Rhythm GI/Abdominal Exam: Normal Bowel Sounds, Soft, Non-Tender, No Organomegaly <Krissy Castaneda - Last Filed: 12/14/20 19:04> Discharge Summary - Hospital Course Free Text/Narrative:: I have seen and evaluated the patient. I have discussed findings and treatment plan with resident. I agree with the assessment and plan in the following note. - Referral to Home Health Primary Care Physician: PCP None - Patient Data Vitals - Most Recent: Last Vital Signs Temp 36.5 C 12/13/20 08:52 Pulse 88 12/13/20 08:52 Resp 20 12/13/20 09:15 BP 119/66 12/13/20 08:52 Pulse Ox 93 L 12/13/20 09:15 Med Orders - Current: Current Medications Discontinued Medications Albuterol (Albuterol 8 Gm Inhaler) 1 gm INH ONETIME ONE Stop: 12/09/20 15:39 Last Admin: 12/09/20 16:20 Dose: 2 puff Documented by: Albuterol/Ipratropium (Albuterol/Ipratropium 4 Gm Inhalation Sarah Ann) 1 gm INH Q4H PRN PRN Reason: Dyspnea Albuterol/Ipratropium (Albuterol/Ipratropium 4 Gm Inhalation Sarah Ann) 0 gm INH Q4H [facility] Last Admin: 12/13/20 10:26 Dose: 1 puff Documented by: Albuterol/Ipratropium (Albuterol/Ipratropium 3.0-0.5 Mg/3 Ml Neb Soln) 3 ml NEB Q4HRRT PRN PRN Reason: Shortness of Breath Albuterol/Ipratropium (Albuterol/Ipratropium 3.0-0.5 Mg/3 Ml Neb Soln) 3 ml NEB Q4HRRT PRN PRN Reason: Shortness of Breath Dexamethasone (Dexamethasone 10 Mg/Ml Sdv) 6 mg IVPUSH ONETIME ONE Stop: 12/09/20 15:40 Last Admin: 12/09/20 16:28 Dose: 6 mg Documented by: Dexamethasone (Dexamethasone 4 Mg Tab) 6 mg PO DAILY [facility] Last Admin: 12/13/20 08:55 Dose: 6 mg Documented by: Enoxaparin Sodium (Enoxaparin 40 Mg/0.4 Ml Syringe) 40 mg SUBCUT Q24H [facility] Last Admin: 12/09/20 20:08 Dose: 40 mg Documented by: Enoxaparin Sodium (Enoxaparin 40 Mg/0.4 Ml Syringe) 40 mg SUBCUT Q12H [facility] Last Admin: 12/13/20 08:54 Dose: 40 mg Documented by: Guaifenesin (Guaifenesin 100 Mg/5 Ml Soln 5 Ml Ud Cup) 100 mg PO Q6H PRN PRN Reason: Cough Last Admin: 12/13/20 08:55 Dose: 100 mg Documented by: Remdesivir 200 mg/ Sodium (Chloride) 250 mls @ 250 mls/hr IV ONETIME ONE Stop: 12/09/20 17:43 Last Admin: 12/09/20 18:26 Dose: 250 mls/hr Documented by: Remdesivir 100 mg/ Sodium (Chloride) 100 mls @ 100 mls/hr IV Q24H [facility] Stop: 12/13/20 16:29 Last Admin: 12/11/20 15:29 Dose: 100 mls/hr Documented by: Pantoprazole Sodium (Pantoprazole 40 Mg Tab.Cr) 40 mg PO DAILY [facility] Last Admin: 12/13/20 08:55 Dose: 40 mg Documented by: Polyethylene Glycol (Polyethylene Glycol 3350 Powder 17 Gm Packet) 17 gm PO BEDTIME PRN PRN Reason: Constipation Fluticasone/Salmeterol (Fluticasone/Salmeterol 250-50 Mcg Inhalation Powder 14/Diskus) 0 puff INH BID [facility] Last Admin: 12/13/20 08:55 Dose: 1 puff Documented by: Sodium Chloride (Sodium Chloride 0.9% 10 Ml Syringe) 10 ml FLUSH ASDIRECTED PRN PRN Reason: Keep Vein Open Last Admin: 12/09/20 16:16 Dose: 10 ml Documented by: Sodium Chloride (Sodium Chloride 0.9% 2.5 Ml Syringe) 2.5 ml FLUSH ASDIRECTED PRN PRN Reason: Keep Vein Open Last Admin: 12/09/20 16:18 Dose: 2.5 ml Documented by:
== END 2020-12-13 11:50 | disposition home or self-care (01) | DRG 137 ==
LOC: MW.ED 15:25 → MW.MS 17:44
PROVIDERS: ADMIT Student in an Organized Health Care Education/Training Program; ATTEND Student in an Organized Health Care Education/Training Program
PROC: XW033E5 Introduction of Remdesivir Anti-infective into Peripheral Vein, Percutaneous Approach, New Technology Group 5 (ICD-10-PCS; principal; 2020-12-09)
PROC: 3E0333Z Introduction of Anti-inflammatory into Peripheral Vein, Percutaneous Approach (ICD-10-PCS; 2020-12-09)
PROC: 3E0DX3Z Introduction of Anti-inflammatory into Mouth and Pharynx, External Approach (ICD-10-PCS; 2020-12-10)
DX: U07.1 COVID-19 (principal); J12.82 Pneumonia due to coronavirus disease 2019; J96.01 Acute respiratory failure with hypoxia; K59.00 Constipation, unspecified; J45.909 Unspecified asthma, uncomplicated; K21.9 Gastro-esophageal reflux disease without esophagitis; F41.9 Anxiety disorder, unspecified; E66.9 Obesity, unspecified; Z91.013 Allergy to seafood; Z88.1 Allergy status to other antibiotic agents; Z88.8 Allergy status to other drugs, medicaments and biological substances; Z91.018 Allergy to other foods; Z79.51 Long term (current) use of inhaled steroids; Z68.42 Body mass index [BMI] 45.0-49.9, adult
CPT/HCPCS: 36415; 71045; 71045-26; 80053; 82248; 84484; 85025; 94640; 94664; 96374; 99285-25; A9270-GY; J1100; J1650; J7050; J8540